=== PATIENT | male | born 1970 | race Caucasian/White ===

== ENCOUNTER 2017-05-11 11:24 | Emergency (ER) | payer OTHER ==
[2017-05-11] MEDS ORDERED: DEXAMETHASONE SOD PHOSPHATE 10 MG/ML 1 ML VIAL IV STA (12:08)
[2017-05-11] MEDS ORDERED: HYDROmorphone 1 MG/ML 1 ML SYRINGE IVP STA (12:08)
[2017-05-11] MEDS ORDERED: SODIUM CHLORIDE 0.9% 1,000 ML IV SCH (12:15)
--- NOTE | 2017-05-11 12:31 | ED ---
General Adult HPI - General Chief complaint: Extremity Problem,Nontraumatic Stated complaint: leg pain Time Seen by Provider: 05/11/17 11:44 Source: patient, family, RN notes reviewed Mode of arrival: wheelchair Limitations: no limitations - History of Present Illness Initial comments: Chief complaint and history of present illness is a 46-year-old male here with his sister. The patient has severe pain starting in the lateral left thigh area radiating down to the lateral aspect of the leg to the foot. Burning searing pain. Recently the patient was reviewed his hospital because of possible kidney stones since then the pains become progressively worse. He did have some blood in the urine and was told the CAT scan showed evidence of stones in the kidney and he may have possibly passed one but none was noted in the ureter. Patient does have a history of kidney stones 2 previous times. Denies any history of sciatic type problems. He's been on steroids and pain medication for several days and is not covering the discomfort. Patient says he can't stand long enough to brush his teeth because of the pain. He has a positive leg lift test which causes increased pain to the left sciatic nerve distribution. Patient denies any injuries. 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 - Related Data Home Medications Medication Instructions Recorded Confirmed Acetaminophen/Diphenhydramine 2 tab PO HS PRN 05/11/17 05/11/17 [Tylenol PM 500-25mg] Ciprofloxacin HCl [Cipro] 500 mg PO Q12HR 05/11/17 05/11/17 HYDROcodone/APAP 5-325MG [[place] 1 tab PO Q4HR PRN 05/11/17 05/11/17 5-325] Methocarbamol [Robaxin] 1,000 mg PO TID 05/11/17 05/11/17 Ondansetron [Zofran ODT] 4 mg PO Q8HR 05/11/17 05/11/17 Tamsulosin [Flomax] 0.4 mg PO DAILY 05/11/17 05/11/17 predniSONE See Taper PO DAILY 05/11/17 05/11/17 Allergies Allergy/AdvReac Type Severity Reaction Status Date / Time No Known Allergies Allergy Verified 05/11/17 11:41 Review of Systems ROS Statement: Those systems with pertinent positive or pertinent negative responses have been documented in the HPI. Review of systems no headache or visual acuity changes no chest pain or shortness of breath no nausea no vomiting. He has from L2 to L5 distribution pain any to the lateral aspect of the right leg starting at the hip area to the lateral aspect of the left leg. He has different sensation compared to the left leg in those areas normal sensations medially and at the feet. All systems are reviewed. Past medical problems kidney stones. Surgeries tonsils and left knee meniscus surgery. Family history mother had lung cancer. Patient denies ALLERGIES he does chew tobacco strongly encouraged to stop drinks alcohol socially. ROS Other: All systems not noted in ROS Statement are negative. Past Medical History Past Medical History: No Reported History History of Any Multi-Drug Resistant Organisms: None Reported Past Surgical History: Tonsillectomy Past Psychological History: No Psychological Hx Reported Smoking Status: Never smoker Past Alcohol Use History: Occasional Past Drug Use History: None Reported General Exam - General Exam Comments Initial Comments: General: The patient is awake and alert, in [id number] distress because of pain radiating down the lateral aspect of his right leg. Vital signs temperature 97.5 pulse 85 respiratory rate 20 pulse ox 99% room air blood pressure 174/99. He does not normally have high blood pressure. Eye: Pupils are equal, round and reactive to light, extra-ocular movements are intact ; there is normal conjunctiva bilaterally. No signs of icterus. Ears, nose, mouth and throat: There are moist mucous membranes and no oral lesions. Neck: The neck is supple, there is no tenderness . Cardiovascular: There is a regular rate and rhythm. No murmur, rub or gallop is appreciated. Respiratory: Lungs are clear to auscultation, respirations are non-labored, breath sounds are equal. No wheezes, stridor, rales, or rhonchi. Gastrointestinal: Soft, non-distended, non-tender abdomen without masses or organomegaly noted. There is no rebound or guarding present. No CVA tenderness. Bowel sounds are unremarkable. Back: The pain starts in the low right buttock radiates mainly to the lateral aspect of the right thigh and right lower leg. Positive leg lift test Musculoskeletal: Normal ROM, no tenderness, There is no pedal edema. There is no calf tenderness or swelling. Sensation intact. Pulses equal bilaterally 2+. Neurological: CN II-XII intact, There are no obvious motor or sensory deficits. Coordination appears grossly intact. Speech is normal. Right sciatica distribution pain Skin: Skin is warm and dry and no rashes or lesions are noted. Limitations: no limitations Course Vital Signs 05/11/17 05/11/17 05/11/17 11:27 13:40 14:49 Temperature 97.5 F L 97.9 F 98.0 F Pulse Rate 85 81 Respiratory 20 17 Rate Blood Pressure 174/99 139/93 O2 Sat by Pulse 99 95 Oximetry Medical Decision Making - Medical Decision Making At this time the patient will have medications provided including Dilaudid and Decadron. The patient will have an MRI approximately 2:30 today. I discussed the case with radiologist Dr. Eli. At this time he recommends MRI of the lumbosacral spine without contrast. MRI was done and reviewed by radiologist's his final impression is #1 broad- based and circumferential disc bulging L4-L5 with mild effacement of the thecal sac but no canal stenosis. Bulging greater for laterally the right with bilateral mild to moderate foraminal encroachment greater on the right. Far right lateral disc protrusion suggested. Correlate for radiculopathy at this level. #2 annular tear at L5-S1 no disc herniation, Canal Stenosis, or Foraminal Encroachment. And #3 Multilevel Facet Arthropathy As Read by Dr. Delgado. The Patient Is More Comfortable at This Time to Be Discharged Home on Steroids Anti-Inflammatories and Pain Medication Be Referred onto His [facility] On-Call Back Surgeon Dr. Eaton at [facility]. As Disposition Clinical Impression: Lumbar radiculopathy, acute Disposition: HOME SELF-CARE Condition: Fair Instructions: Lumbar Radiculopathy (ED) Additional Instructions: Take medications as directed. Referrals: None,Stated [Primary Care Provider] - 1-2 days Patricia Eaton DO [Doctor of Osteopathic Medicine] - 1-2 days Santiago Cortés MD [STAFF PHYSICIAN] - 1-2 days Time of Disposition: 15:18
--- NOTE | 2017-05-11 14:48 | MR ---
EXAMINATION TYPE: MR lumbar spine wo con DATE OF EXAM: 05/11/2017 COMPARISON: NONE HISTORY: Severe pain lateral aspect of rt leg to foot TECHNIQUE: T1 and T2 axial and sagittal images of the lumbar spine are submitted. FINDINGS: There is no abnormal signal seen within the visualized spinal cord or paraspinal soft tissu es. Incidental note made of a retroaortic left renal vein. At L1-2 there is no disc herniation, degenerative disc disease, canal stenosis, or foraminal encroach ment. Mild hypertrophic change of the facets. At L2-3 there is no disc herniation, degenerative disc disease, canal stenosis, or foraminal encroach ment. Mild hypertrophic change of the facets At L3-4 there is mild disc desiccation with no disc herniation or canal stenosis. No foraminal encroa chment. Mild facet arthropathy. At L4-5 there is broad-based and circumferential disc bulging with very mild anterior effacement of t hecal sac. There is mild to moderate bilateral foraminal encroachment greater on the right. Suspected far right lateral disc protrusion or herniation. Recommend follow-up postcontrast imaging. At L5-S1 there is annular tear with facet arthropathy. No focal herniation, canal stenosis or neural foraminal encroachment. IMPRESSION: 1. Broad-based and circumferential disc bulging L4-L5 with mild effacement of thecal sac but no canal stenosis. Bulging greater far laterally the right with bilateral mild to moderate foraminal encroach ment greater on the right. Far right lateral disc protrusion suggested. Correlate for radiculopathy a t this level. 2. Annular tear L5-S1 with no disc herniation, canal stenosis, or foraminal encroachment. 3. Multilevel facet arthropathy.
[2017-05-11 14:50] VITALS: BP 139/93; PULSE 81; RESP 17; TEMP 98
== END 2017-05-11 15:35 | disposition home or self-care (01) ==
LOC: EC 11:24
DX: M51.17 Intervertebral disc disorders with radiculopathy, lumbosacral region (principal); M46.96 Unspecified inflammatory spondylopathy, lumbar region; Z79.52 Long term (current) use of systemic steroids; Z79.899 Other long term (current) drug therapy
CPT/HCPCS: 72148; 99283; 96374; 96375; 96361 ×3; J1100; J1170

== ENCOUNTER 2018-12-31 05:55 | Observation (INO) | payer OTHER ==
[2018-12-31] MEDS ORDERED: ASPIRIN 81 MG PO STA (06:24)
[2018-12-31] MEDS ORDERED: hydrALAZINE HCL 20 MG/ML 1 ML VIAL IVP STA (06:25)
--- NOTE | 2018-12-31 06:29 | ED ---
Chest Pain HPI - General Chief Complaint: Chest Pain Stated Complaint: chest pain Time Seen by Provider: 12/31/18 06:18 Source: patient Mode of arrival: ambulatory Limitations: no limitations - History of Present Illness Initial Comments: This patient is a 48-year-old man presenting with approximately a one-month history of intermittent chest pains. He describes it as being a tightness across his chest. Patient states that they come and go. He has not noted any factors that make the pain better or worse. He states that it is not exertional. Patient states that the symptoms have been getting worse for the past approximately 2-3 days. In addition, patient has been checking his blood pressure intermittently over the past few weeks and it has been elevated. He does not have primary physician. He denies anginal symptoms. MD Complaint: chest pain -: hour(s) Onset: during rest Pain Location: substernal Pain Radiation: none Severity: moderate Quality: tightness Consistency: constant Improves With: nothing Worsens With: nothing Treatments Prior to Arrival: none - Related Data Home Medications Medication Instructions Recorded Confirmed Favio Pm (Otc Sleep Aid) 2 tab PO HS PRN 12/31/18 12/31/18 Allergies Allergy/AdvReac Type Severity Reaction Status Date / Time No Known Allergies Allergy Verified 12/31/18 06:57 Review of Systems ROS Statement: Those systems with pertinent positive or pertinent negative responses have been documented in the HPI. ROS Other: All systems not noted in ROS Statement are negative. Constitutional: Denies: fever Respiratory: Denies: cough, dyspnea, wheezes Cardiovascular: Reports: as per HPI, chest pain. Denies: palpitations, edema, syncope Gastrointestinal: Denies: abdominal pain, nausea, vomiting Genitourinary: Denies: dysuria Musculoskeletal: Denies: back pain Skin: Denies: rash Neurological: Denies: headache, weakness, numbness EKG Findings - EKG Results: EKG: interpreted by ERMD, sinus rhythm, normal axis, normal QRS, normal ST/T, no acute changes EKG shows: tachycardia (Rate approximately 108 bpm) Past Medical History Past Medical History: Hypertension Additional Past Medical History / Comment(s): kidney stone History of Any Multi-Drug Resistant Organisms: None Reported Past Surgical History: Orthopedic Surgery, Tonsillectomy Past Psychological History: No Psychological Hx Reported Smoking Status: Never smoker Past Alcohol Use History: Occasional Past Drug Use History: None Reported General Exam Limitations: no limitations General appearance: alert, in no apparent distress, anxious Head exam: Present: atraumatic, normocephalic Eye exam: Present: normal appearance. Absent: scleral icterus, conjunctival injection ENT exam: Present: normal oropharynx Respiratory exam: Present: normal lung sounds bilaterally. Absent: respiratory distress, wheezes, rales, rhonchi, stridor Cardiovascular Exam: Present: normal rhythm, tachycardia, normal heart sounds. Absent: systolic murmur, diastolic murmur, rubs, gallop GI/Abdominal exam: Present: soft. Absent: distended, tenderness, guarding, rebound, rigid, mass Extremities exam: Present: normal inspection, normal capillary refill. Absent: pedal edema, calf tenderness Back exam: Present: normal inspection. Absent: CVA tenderness (R), CVA tenderness (L) Neurological exam: Present: alert Skin exam: Present: warm, dry, intact, normal color. Absent: rash Course Vital Signs 12/31/18 05:57 Temperature 99.0 F Pulse Rate 112 H Respiratory 20 Rate Blood Pressure 184/126 O2 Sat by Pulse 99 Oximetry Disposition Clinical Impression: Chest pain, Hypertension Disposition: ADMITTED IP TO THIS HOSP Condition: Fair Is patient prescribed a controlled substance at d/c from ED?: No Referrals: None,Stated [Primary Care Provider] - 1-2 days
--- NOTE | 2018-12-31 06:58 | XR ---
EXAM: XR Chest, 2 Views CLINICAL HISTORY: Chest pain. TECHNIQUE: Frontal and lateral views of the chest. COMPARISON: No relevant prior studies available. FINDINGS: Lungs: No focal consolidation. No evidence of pulmonary edema. Pleural space: No significant pleural effusion. No pneumothorax. Heart: Unremarkable. No cardiomegaly. Mediastinum: Unremarkable. Bones/joints: Unremarkable. IMPRESSION: No radiographic evidence of acute cardiopulmonary process.
[2018-12-31 06:59] LABS: Basophils % (A) 1 %; Eosinophils # (A) 0.1 k/uL (0-0.7); Eosinophils % (A) 2 %; HCT 44.6 % (39.0-53.0); HGB 15.3 gm/dL (13.0-17.5); Lymphocytes # (A) 2.1 k/uL (1.0-4.8); Lymphocytes % (A) 29 %; MCH 31.9 pg (25.0-35.0); MCHC 34.4 g/dL (31.0-37.0); MCV 92.9 fL (80.0-100.0); Mean Platelet Volume 7.2; Monocytes # (A) 0.4 k/uL (0-1.0); Monocytes % (A) 5 %; Neutrophils # (A) 4.7 k/uL (1.3-7.7); Neutrophils % (A) 63 %; Platelet Count 264 k/uL (150-450); RDW 13.4 % (11.5-15.5); WBC 7.4 k/uL (3.8-10.6)
[2018-12-31 07:06] LABS: Partial Thromboplastin Time 26.4 sec (22.0-30.0); Prothrombin Time 10.6 sec (9.0-12.0)
[2018-12-31 07:12] LABS: ALT 40 U/L (21-72); AST 35 U/L (17-59); Albumin 4.4 g/dL (3.5-5.0); Alkaline Phosphatase 65 U/L (38-126); Amylase 46 U/L (30-110); Anion Gap 10 mmol/L; Blood Urea Nitrogen 18 mg/dL (9-20); Calcium 10.3 mg/dL (8.4-10.2); Carbon Dioxide 25 mmol/L (22-30); Chloride 105 mmol/L (98-107); Glucose 127 mg/dL (74-99); Lipase 61 U/L (23-300); Magnesium 1.7 mg/dL (1.6-2.3); Potassium 3.7 mmol/L (3.5-5.1); Sodium 140 mmol/L (137-145); Total Bilirubin 0.8 mg/dL (0.2-1.3); Total Protein 7.2 g/dL (6.3-8.2)
[2018-12-31] MEDS ORDERED: NITROGLYCERIN SL TABS 0.4 MG TAB SUBLINGUAL PRN (07:22)
[2018-12-31] MEDS ORDERED: ACETAMINOPHEN TAB 325 MG TAB PO PRN (07:22)
[2018-12-31 07:29] LABS: Creatine Kinase 60 U/L (55-170)
[2018-12-31 07:42] LABS: Creatine Kinase MB 0.5 ng/mL (0.0-2.4); Troponin I <0.012 ng/mL (0.000-0.034)
[2018-12-31] MEDS: SODIUM CHLORIDE 0.9% 1,000 ML IV SCH (07:57)
[2018-12-31] MEDS ORDERED: METOPROLOL TARTRATE 25 MG TAB PO SCH (09:00)
[2018-12-31] MEDS: LOSARTAN 25 MG TAB PO SCH (10:32)
[2018-12-31] MEDS: NITROGLYCERIN OINT 1 INCH/GM PACKET TOPICAL SCH ×3 (10:35→17:47)
--- NOTE | 2018-12-31 13:00 | P.CRDCN ---
History of Present Illness History of present illness: This is a pleasant 48-year-old male past medical history significant for hypertension in the past however has never been treated or sought medical attention due to lack of insurance. He also has a history of kidney stones. He denies history of coronary artery disease, dyslipidemia or diabetes mellitus. We have been asked to see him in consultation for chest pain. He states he has been having chest pain intermittently for the last few weeks. The pain is in the mid-sternal region and described as pressure tight sensation. The discomfort comes at all times of the day and night with no specific aggravating or alleviating factors. He denies associated shortness of breath, dizziness, nausea, vomiting or diaphoresis. The pain typically does not radiate anywhere and goes away on its own. However, last night the pain was much more intense in nature and radiated to his left shoulder and upper arm. This alarmed him since this was a new symptom. He continues to have pain in his chest that has improved since admission after getting SL nitro. Blood pressure on arrival 184/ 106 and 170/105. He states approximately one year ago while at a dental visit for tooth extraction his blood pressure was extremely high and he was told to seek medical attention. However he had no medical insurance and never followed up. He states he will check his blood pressure intermittently while he was at the pharmacy or at home and his blood pressures consistently have been elevated over the previous year 160-180 systolic. He was given one dose of IV hydralazine in the emergency department early this morning at 0645. Current blood pressure is 147/100 and 151/88. At the time of my exam: CONSTITUTIONAL: Denies fever. Denies chills. EYES: Denies blurred vision. Denies vision changes. Denies eye pain. EARS, NOSE, MOUTH & THROAT: Denies headache. Denies sore throat. Denies ear pain. CARDIOVASCULAR: Denies chest pain. Denies shortness of breath. Denies orthopnea. Denies PND. Denies palpitations. RESPIRATORY: Denies cough. GASTROINTESTINAL: Denies abdominal pain. Denies diarrhea. Denies constipation. Denies nausea. Denies vomiting. MUSCULOSKELETAL: Denies myalgias. INTEGUMENTARY: Denies pruitis. Denies rash. NEUROLOGIC: Denies numbness. Denies tingling. Denies weakness. PSYCHIATRIC: Denies anxiety. Denies depression. ENDOCRINE: Denies fatigue. Denies weight change. Denies polydipsia. Denies polyurina. GENITOURINARY: Denies burning, hematuria or urgency with micturation. HEMATOLOGIC: Denies history of anemia. Denies bleeding. Blood pressure 151/88 heart rate 98 afebrile resting oxygen saturation on room air GENERAL: This is a 48-year-old male in no apparent distress at the time of my examination. Obese. HEENT: Head is atraumatic, normocephalic. Pupils are equal, round. Sclerae anicteric. Conjunctivae are clear. Mucous membranes of the mouth are moist. Neck is supple. There is no jugular venous distention. No carotid bruit is heard. LUNGS: Clear to auscultation no wheezes, rales or rhonchi. No chest wall tenderness is noted on palpation or with deep breathing. HEART: Regular rate and rhythm without murmurs, rubs or gallops. S1 and S2 heard. ABDOMEN: Soft, nontender. Bowel sounds are heard. No organomegaly noted. EXTREMITIES: No evidence of peripheral edema and no calf tenderness noted. VASCULAR: Radial and dorsalis pedis pulses palpated, no evidence of clubbing. NEUROLOGIC: Patient is awake, alert and oriented x3. ASSESSMENT Chest pain, atypical. Hypertensive emergency PLAN Continue to obtain serial cardiac enzymes to rule out an acute coronary event. Initiate on losartan 25 mg daily. Apply nitropaste for ongoing symptoms of chest discomfort. Continue to monitor blood pressure closely. NPO after midnight tonight for stress test in the morning if cardiac enzymes are normal and blood pressure is controlled. Further recommendations to follow. Thank you kindly for this consultation. Nurse Practitioner note has been reviewed, I agree with a documented findings and plan of care. Patient was seen and examined. Past Medical History Past Medical History: Hypertension Additional Past Medical History / Comment(s): Kidney stones x2 pt passed on his own, HTN for 1 year-pt did not pursue tx d/t no insurance coverage. History of Any Multi-Drug Resistant Organisms: None Reported Past Surgical History: Orthopedic Surgery, Tonsillectomy Additional Past Surgical History / Comment(s): R knee arthroscopic surgery. Past Anesthesia/Blood Transfusion Reactions: No Reported Reaction Past Psychological History: No Psychological Hx Reported Additional Psychological History / Comment(s): Pt resides with his brother in law. He is independent. Smoking Status: Never smoker Past Alcohol Use History: Occasional Past Drug Use History: None Reported - Past Family History Mother Family Medical History: Cancer Additional Family Medical History / Comment(s): Mother of lung cancer at the age of 68yrs. She was a smoker. Father History Unknown: Yes Additional Family Medical History / Comment(s): Father left when pt was 4 yrs old. Medications and Allergies Home Medications Medication Instructions Recorded Confirmed Type [employer] Pm (Otc Sleep Aid) 2 tab PO HS PRN 12/31/18 12/31/18 History Allergies Allergy/AdvReac Type Severity Reaction Status Date / Time No Known Allergies Allergy Verified 12/31/18 06:57 Physical Exam Vitals: Vital Signs Temp Pulse Pulse Resp BP BP Pulse Ox 12/31/18 11:50 98.6 F 90 18 151/88 96 12/31/18 09:30 147/100 12/31/18 08:55 98 F 86 18 169/111 97 12/31/18 08:43 92 18 12/31/18 08:11 131 H 18 141/93 96 12/31/18 08:06 128 H 18 146/105 95 12/31/18 07:58 110 H 18 164/119 97 12/31/18 07:20 112 H 18 168/107 94 L 12/31/18 07:10 105 H 16 168/107 95 12/31/18 07:00 104 H 18 152/113 96 12/31/18 06:50 105 H 17 152/113 97 12/31/18 06:40 100 19 170/105 93 L 12/31/18 06:30 105 H 17 96 12/31/18 06:20 103 H 15 98 12/31/18 06:10 99 12/31/18 05:57 99.0 F 112 H 20 184/126 99 Intake and Output 12/30/18 12/31/18 12/31/18 22:59 06:59 14:59 Other: Weight 95.254 kg Results 12/31/18 06:30 12/31/18 06:30 Cardiac Enzymes 12/31/18 12/31/18 Range/Units 06:30 06:30 AST 35 (17-59) U/L CK-MB (CK-2) 0.5 (0.0-2.4) ng/mL Troponin I <0.012 (0.000-0.034) ng/mL Coagulation 12/31/18 Range/Units 06:30 PT 10.6 (9.0-12.0) sec APTT 26.4 (22.0-30.0) sec CBC 12/31/18 Range/Units 06:30 WBC 7.4 (3.8-10.6) k/uL RBC 4.80 (4.30-5.90) m/uL Hgb 15.3 (13.0-17.5) gm/dL Hct 44.6 (39.0-53.0) % Plt Count 264 (150-450) k/uL Comprehensive Metabolic Panel 12/31/18 Range/Units 06:30 Sodium 140 (137-145) mmol/L Potassium 3.7 (3.5-5.1) mmol/L Chloride 105 (98-107) mmol/L Carbon Dioxide 25 (22-30) mmol/L BUN 18 (9-20) mg/dL Creatinine 0.98 (0.66-1.25) mg/dL Glucose 127 H (74-99) mg/dL Calcium 10.3 H (8.4-10.2) mg/dL AST 35 (17-59) U/L ALT 40 (21-72) U/L Alkaline Phosphatase 65 (38-126) U/L Total Protein 7.2 (6.3-8.2) g/dL Albumin 4.4 (3.5-5.0) g/dL Current Medications Generic Name Dose Route Start Last Admin Trade Name Freq PRN Reason Stop Dose Admin Acetaminophen 650 mg 12/31/18 07:22 Tylenol Tab PO Q4HR PRN Pain Aspirin 325 mg 01/01/19 09:00 Aspirin PO DAILY JESSICA Sodium Chloride 1,000 mls @ 20 mls/hr 12/31/18 07:30 12/31/18 07:57 Saline 0.9% IV Not Given .Q24H JESSICA Losartan Potassium 25 mg 12/31/18 09:45 12/31/18 10:32 Cozaar PO 25 mg DAILY JESSICA Administration Metoprolol Tartrate 25 mg 12/31/18 09:00 12/31/18 07:59 Lopressor PO 25 mg Q12H JESSICA Administration Nitroglycerin 0.4 mg 12/31/18 07:22 12/31/18 07:58 Nitrostat SUBLINGUAL 0.4 mg Q5M PRN Administration Chest Pain Nitroglycerin 1 inch 12/31/18 12:00 12/31/18 10:35 Nitro-Bid Oint TOPICAL 1 inch Q6HR JESSICA Administration Intake and Output 12/30/18 12/31/18 12/31/18 22:59 06:59 14:59 Other: Weight 95.254 kg 12/31/18 06:30 12/31/18 06:30
[2018-12-31 13:50] LABS: Creatine Kinase 57 U/L (55-170)
--- NOTE | 2018-12-31 14:03 | P.HPIM ---
History of Present Illness 48-year-old pleasant gentleman came in with compensative chest pressure like sensation nonexertional with some pleuritic competent because of the breathing patient has ER like symptoms for about a week or so. Patient chest pain does increase with some deep breathing in the retrosternal area patient has a constant pressure with the out any radiation pain which is very minimal severity with on and off severe 8/10 sharp pain in the retrosternal area patient does have reproducibility around the epigastric area. Patient believes his probably hypertensive never seeks medical attention for that his blood pressure is definitely elevated here with tachycardia. Patient was complaining of some lightheadedness denied any diaphoresis denied nausea vomiting. Patient denied any cough is not a smoker. Review of Systems REVIEW OF SYSTEMS: CONSTITUTIONAL: No fever, no malaise, no fatigue. HEENT: No recent visual problems or hearing problems. Denied any sore throat. CARDIOVASCULAR: No orthopnea, PND, no palpitations, no syncope. PULMONARY: No shortness of breath, no cough, no hemoptysis. GASTROINTESTINAL: No diarrhea, no nausea, no vomiting, no abdominal pain. NEUROLOGICAL: No headaches, no weakness, no numbness. HEMATOLOGICAL: Denies any bleeding or petechiae. GENITOURINARY: Denies any burning micturition, frequency, or urgency. MUSCULOSKELETAL/RHEUMATOLOGICAL: Denies any joint pain, swelling, or any muscle pain. ENDOCRINE: Denies any polyuria or polydipsia. The rest of the 14-point review of systems is negative. Past Medical History Past Medical History: Hypertension Additional Past Medical History / Comment(s): Kidney stones x2 pt passed on his own, HTN for 1 year-pt did not pursue tx d/t no insurance coverage. History of Any Multi-Drug Resistant Organisms: None Reported Past Surgical History: Orthopedic Surgery, Tonsillectomy Additional Past Surgical History / Comment(s): R knee arthroscopic surgery. Past Anesthesia/Blood Transfusion Reactions: No Reported Reaction Past Psychological History: No Psychological Hx Reported Additional Psychological History / Comment(s): Pt resides with his brother in law. He is independent. Smoking Status: Never smoker Past Alcohol Use History: Occasional Past Drug Use History: None Reported - Past Family History Mother Family Medical History: Cancer Additional Family Medical History / Comment(s): Mother of lung cancer at the age of 68yrs. She was a smoker. Father History Unknown: Yes Additional Family Medical History / Comment(s): Father left when pt was 4 yrs old. Medications and Allergies Home Medications Medication Instructions Recorded Confirmed Type [facility] Pm (Otc Sleep Aid) 2 tab PO HS PRN 12/31/18 12/31/18 History Allergies Allergy/AdvReac Type Severity Reaction Status Date / Time No Known Allergies Allergy Verified 12/31/18 06:57 Physical Exam Vitals: Vital Signs Temp Pulse Pulse Resp BP BP Pulse Ox 12/31/18 11:50 98.6 F 90 18 151/88 96 12/31/18 09:30 147/100 12/31/18 08:55 98 F 86 18 169/111 97 12/31/18 08:43 92 18 12/31/18 08:11 131 H 18 141/93 96 12/31/18 08:06 128 H 18 146/105 95 12/31/18 07:58 110 H 18 164/119 97 12/31/18 07:20 112 H 18 168/107 94 L 12/31/18 07:10 105 H 16 168/107 95 12/31/18 07:00 104 H 18 152/113 96 12/31/18 06:50 105 H 17 152/113 97 12/31/18 06:40 100 19 170/105 93 L 12/31/18 06:30 105 H 17 96 12/31/18 06:20 103 H 15 98 12/31/18 06:10 99 12/31/18 05:57 99.0 F 112 H 20 184/126 99 Intake and Output 12/30/18 12/31/18 12/31/18 22:59 06:59 14:59 Other: Weight 95.254 kg PHYSICAL EXAMINATION: GENERAL: The patient is alert and oriented x3, not in any acute distress. Obese HEENT: Pupils are round and equally reacting to light. EOMI. No scleral icterus. No conjunctival pallor. Normocephalic, atraumatic. No pharyngeal erythema. No thyromegaly. CARDIOVASCULAR: S1 and S2 present. No murmurs, rubs, or gallops. PULMONARY: Chest is clear to auscultation, no wheezing or crackles. ABDOMEN: Soft, nontender, nondistended, normoactive bowel sounds. No palpable organomegaly. MUSCULOSKELETAL: No joint swelling or deformity. EXTREMITIES: No cyanosis, clubbing, or pedal edema. NEUROLOGICAL: Gross neurological examination did not reveal any focal deficits. SKIN: No rashes. Results CBC & Chem 7: 12/31/18 06:30 12/31/18 06:30 Labs: Abnormal Lab Results - Last 24 Hours (Table) 12/31/18 Range/Units 06:30 Glucose 127 H (74-99) mg/dL Calcium 10.3 H (8.4-10.2) mg/dL Thrombosis Risk Factor Assmnt - Choose All That Apply Any of the Below Risk Factors Present?: Yes Each Factor Represents 1 point: Age 41-60 years, Obesity (BMI >25) Other Risk Factors: No Other congenital or acquired thrombophilia - If yes, enter type in comment: No Thrombosis Risk Factor Assessment Total Risk Factor Score: 2 Thrombosis Risk Factor Assessment Level: Low Risk Assessment and Plan Plan: -Chest pain with some pruritic, and because of which are pending a d-dimer which is negative. Patient is admitted to rule out a concurrent syndromes uncertain of troponin is -2 seconds at is still pending. Patient does have yearly symptoms it can be pleuropericarditis of muscular skeletal chest pain. Patient may undergo stress test tomorrow if that is negative patient was discharged on some nonsteroidal anti-inflammatory medications -Hypertension patient the was started on lisinopril and metoprolol because of elevated heart rate tended d-dimer to rule out pulmonary embolism because of the tachycardia and chest pain d-dimer is negative. Awaiting T he TSH patient probably has baseline sinus tachycardia because of his obesity counseling regarding lifestyle modifications -Obesity
[2018-12-31 14:04] LABS: Creatine Kinase MB 0.3 ng/mL (0.0-2.4); Troponin I <0.012 ng/mL (0.000-0.034)
[2018-12-31 19:34] LABS: Creatine Kinase 60 U/L (55-170)
[2018-12-31 19:46] LABS: Creatine Kinase MB 0.4 ng/mL (0.0-2.4); Troponin I <0.012 ng/mL (0.000-0.034)
[2019-01-01] MEDS: NITROGLYCERIN OINT 1 INCH/GM PACKET TOPICAL SCH ×3 (00:54→11:47)
[2019-01-01 03:54] VITALS: RESP 18
[2019-01-01 05:48] LABS: Cholesterol 260 mg/dL (<200); HDL Cholesterol 74 mg/dL (40-60); Triglycerides 455 mg/dL (<150)
[2019-01-01] MEDS ORDERED: ASPIRIN 325 MG TAB PO SCH (09:00)
[2019-01-01] MEDS: SODIUM CHLORIDE 0.9% 1,000 ML IV SCH (10:09)
--- NOTE | 2019-01-01 10:45 | ECHOF ---
Referral Reason:cp MEASUREMENTS -------- HEIGHT: 175.3 cm WEIGHT: 95.3 kg BP: 151/88 RVIDd: 2.9 cm (< 3.3) IVSd: 1.4 cm (0.6 - 1.1) LVIDd: 4.5 cm (3.9 - 5.3) LVPWd: 1.2 cm (0.6 - 1.1) IVSs: 1.6 cm LVIDs: 3.6 cm LVPWs: 1.7 cm LA Diam: 3.6 cm (2.7 - 3.8) LAESV Index (A-L): 18.43 ml/m Ao Diam: 3.3 cm (2.0 - 3.7) AV Cusp: 2.0 cm (1.5 - 2.6) LA Diam: 3.4 cm (2.7 - 3.8) MV EXCURSION: 19.783 mm (> 18.000) MV EF SLOPE: 76 mm/s (70 - 150) EPSS: 0.5 cm MV E Herminio: 0.51 m/s MV DecT: 286 ms MV A Herminio: 0.88 m/s MV E/A Ratio: 0.58 RAP: 5.00 mmHg RVSP: 29.40 mmHg FINDINGS -------- Sinus rhythm. This was a technically adequate study. The left ventricular size is normal. There is moderate concentric left ventricular hypertrophy. O verall left ventricular systolic function is normal with, an EF between 55 - 60 %. The right ventricle is normal in size. The left atrial size is normal. The right atrial size is normal. The aortic valve is trileaflet, and appears structurally normal. No aortic stenosis or regurgitation. Mild mitral regurgitation is present. Mild tricuspid regurgitation present. There is no evidence of pulmonary hypertension. The right v entricular systolic pressure, as measured by Doppler, is 29.40mmHg. There is no pulmonic regurgitation present. The aortic root size is normal. There is no pericardial effusion. CONCLUSIONS -------- 1. The left ventricular size is normal. 2. There is moderate concentric left ventricular hypertrophy. 3. Overall left ventricular systolic function is normal with, an EF between 55 - 60 %. 4. The right ventricle is normal in size. 5. The left atrial size is normal. 6. The right atrial size is normal. 7. The aortic valve is trileaflet, and appears structurally normal. No aortic stenosis or regurgitati on. 8. Mild mitral regurgitation is present. 9. Mild tricuspid regurgitation present. 10. There is no evidence of pulmonary hypertension. 11. The right ventricular systolic pressure, as measured by Doppler, is 29.40mmHg. 12. There is no pulmonic regurgitation present. 13. The aortic root size is normal. 14. There is no pericardial effusion. [employer] ATTENDANT: Christie Batres RDCS
[2019-01-01] MEDS: LOSARTAN 25 MG TAB PO SCH (11:46)
[2019-01-01 11:49] VITALS: BP 130/84; PULSE 98; TEMP 97.8
--- NOTE | 2019-01-01 12:27 | ECHOS ---
STRESS ECHOCARDIOGRAM DATE OF SERVICE: 01/01/2019 INDICATIONS: Chest pain. MEDICATIONS: BASELINE HEART RATE: 69 BASELINE BLOOD PRESSURE: 142/99 MAXIMUM HEART RATE: 171 MAXIMUM BLOOD PRESSURE: 218/70 85% MPHR: 148 100% MPHR: 174 METS: 10 MAXIMUM STAGE REACHED: II TOTAL EXERCISE TIME: 8-1/2 minutes CLINICAL INFORMATION: Baseline EKG shows sinus rhythm, normal axis, normal intervals. Patient exercised on Chinedu protocol for a total of 8-1//2 minutes achieving 10 METS 98% of predicted maximal heart rate without chest pain or diagnostic ST-segment depression. Baseline echo shows normal left ventricular size, wall motion and systolic function. Postexercise, there is normal hyperdynamic response of all segments of myocardium noted. CONCLUSIONS: 1. Good exercise tolerance. 2. Negative stress test by EKG criteria. 3. Negative stress echo. FARHAN / THALIAN: [id number] /
--- NOTE | 2019-01-01 13:21 | P.PN ---
Subjective This is a pleasant 48-year-old male past medical history significant for hypertension in the past however has never been treated or sought medical attention due to lack of insurance. He also has a history of kidney stones. He denies history of coronary artery disease, dyslipidemia or diabetes mellitus. We have been asked to see him in consultation for chest pain. He was started on losartan yesterday and his blood pressure is much better controlled today, 130/ 84 heart rate 98. He states last night after eating dinner he again felt a pain in the chest in the mid-sternal region. Described as a tight burning sensation. He declined nitroglycerin or antacids at the time. Echocardiogram obtained reveals preserved left ventricular systolic function with ejection fraction 55- 60%. GENERAL: This is a 48-year-old male in no apparent distress at the time of my examination. Obese. HEENT: Head is atraumatic, normocephalic. Pupils are equal, round. Sclerae anicteric. Conjunctivae are clear. Mucous membranes of the mouth are moist. Neck is supple. There is no jugular venous distention. No carotid bruit is heard. LUNGS: Clear to auscultation no wheezes, rales or rhonchi. No chest wall tenderness is noted on palpation or with deep breathing. HEART: Regular rate and rhythm without murmurs, rubs or gallops. S1 and S2 heard. EXTREMITIES: No evidence of peripheral edema and no calf tenderness noted. ASSESSMENT Chest pain, atypical. Hypertensive emergency. Resolved. Hypertriglyceridemia PLAN Stress test performed was negative for stress induced ischemia. Lifestyle modifications discussed for lowering of cholesterol with diet and exercise. Will reassess in 3 months. Dietary consultation requested by the patient for education. Chest pain etiology may be related to GI or esophageal spasm, further work-up per primary care team. Stable from a cardiac perspective, follow up with Dr. Alexander in 2 weeks. Nurse Practitioner note has been reviewed, I agree with a documented findings and plan of care. Patient was seen and examined. Objective - Vital Signs Vital signs: Vital Signs Temp 97.8 F 01/01/19 11:48 Pulse 98 01/01/19 11:48 Resp 18 01/01/19 11:48 BP 130/84 01/01/19 11:48 Pulse Ox 96 01/01/19 11:48 Intake & Output 12/31/18 01/01/19 01/01/19 18:59 06:59 18:59 Intake Total 800 400 Balance 800 400 Intake: Oral 800 400 Other: Voiding Method Toilet Toilet - Labs CBC & Chem 7: 12/31/18 06:30 12/31/18 06:30 Labs: Abnormal Lab Results - Last 24 Hours (Table) 12/31/18 Range/Units 06:30 Triglycerides 455 H (<150) mg/dL Cholesterol 260 H (<200) mg/dL HDL Cholesterol 74 H (40-60) mg/dL
--- NOTE | 2019-01-01 16:37 | P.DS ---
Providers Date of admission: 12/31/18 07:25 Attending physician: Krystian Richey Consults: 12/31/18 07:22 Consult Physician Routine Consulting Provider: Dinh Bruce Consult Reason/Comments: chest pain Do you want consulting provider notified?: Yes Primary care physician: Stated None Hospital Course: Patient admitted for gram chest pain appears to be epigastric and related to gastritis or gastric reflux disease patient will be discharged on Prilosec patient underwent stress test which is negative patient had mildly elevated blood pressure and does have hyperlipidemia, lifestyle modifications were advised to the patient and patient is being discharged and patient will follow up as an outpatient with cardiology and PCP repeat a lipase panel if it's still a need to be started on statin. Patient be is bit hypocalcemic secondary to intravascular depletion with repeat basic metabolic profile it's still elevated need to be further evaluated PHYSICAL EXAMINATION: GENERAL: The patient is alert and oriented x3, not in any acute distress. Well developed, well nourished. HEENT: Pupils are round and equally reacting to light. EOMI. No scleral icterus. No conjunctival pallor. Normocephalic, atraumatic. No pharyngeal erythema. No thyromegaly. CARDIOVASCULAR: S1 and S2 present. No murmurs, rubs, or gallops. PULMONARY: Chest is clear to auscultation, no wheezing or crackles. ABDOMEN: Soft, nontender, nondistended, normoactive bowel sounds. No palpable organomegaly. MUSCULOSKELETAL: No joint swelling or deformity. EXTREMITIES: No cyanosis, clubbing, or pedal edema. NEUROLOGICAL: Gross neurological examination did not reveal any focal deficits. SKIN: No rashes. For rest of the chronic medical problems hospitalization course please refer to my HPI from yesterday Patient Condition at Discharge: Fair Plan - Discharge Summary Discharge Rx Participant: No New Discharge Prescriptions: New Losartan [Cozaar] 25 mg PO DAILY #90 tab No Action [facility] Pm (Otc Sleep Aid) 2 tab PO HS PRN PRN Reason: Insomnia Discharge Medication List [facility] P[facility] (Otc Sleep Aid) 2 tab PO HS PRN 12/31/18 [History] Losartan [Cozaar] 25 mg PO DAILY #90 tab 01/01/19 [Rx] Follow up Appointment(s)/Referral(s): Santiago Cortés MD [STAFF PHYSICIAN] - 1-2 Days (pt to follow up with Primary Care Provider.) Flo Alexander MD [STAFF PHYSICIAN] - 01/16/19 3:15 pm (pt to follow up with cardiology.) Patient Instructions/Handouts: Low Fat Diet (GEN), Heart Healthy Diet (GEN), Cholesterol and Your Health (GEN), Lipid Profile (GEN) Discharge Disposition: HOME SELF-CARE
== END 2019-01-01 14:55 | disposition home or self-care (01) ==
LOC: EC 05:55 → 1SOBS 07:25
PROVIDERS: ADMIT Hospitalist; ATTEND Hospitalist
DX: R07.89 Other chest pain (principal); I16.1 Hypertensive emergency; I10 Essential (primary) hypertension; R00.0 Tachycardia, unspecified; E78.1 Pure hyperglyceridemia; E78.5 Hyperlipidemia, unspecified; E83.51 Hypocalcemia; E66.9 Obesity, unspecified; Z68.31 Body mass index [BMI] 31.0-31.9, adult; Z87.442 Personal history of urinary calculi; Z80.1 Family history of malignant neoplasm of trachea, bronchus and lung; Z81.2 Family history of tobacco abuse and dependence
CPT/HCPCS: 96374; 99285; 36415; 93306; 93351; 85379; 83880; 80061; 80053; 84443; 82150; 82550; 82553; 83690; 83735; 84484; 85025; 85610; 85730; 71046; G0378 ×2; J0360

== ENCOUNTER → 2020-01-09 | Outpatient (CLI) | payer BC ==
[2020-01-09 17:00] LABS: INR 0.9 (<1.2); Partial Thromboplastin Time 24.5 sec (22.0-30.0); Prothrombin Time 9.8 sec (9.0-12.0)
== END | disposition home or self-care (01) ==
LOC: LABPAT 15:19
PROVIDERS: ATTEND Orthopaedic Surgery
DX: Z01.818 Encounter for other preprocedural examination (principal); Z01.812 Encounter for preprocedural laboratory examination; M87.051 Idiopathic aseptic necrosis of right femur; Z51.81 Encounter for therapeutic drug level monitoring
CPT/HCPCS: 36415; 85303; 85305; 85610; 85730; 87070; 93005

== ENCOUNTER 2020-01-14 06:45 | Inpatient (IN) | payer BC ==
[2020-01-08 09:01] VITALS: BMI 31.7
--- NOTE | 2020-01-13 09:41 | HP ---
HISTORY AND PHYSICAL CHIEF COMPLAINT: Right hip pain. 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 He has had pain ever since. It has worsened since the initial injury. He is having thigh and groin pain with any weightbearing activities. He notes he has been limping. He has tried medications without much relief. PAST MEDICAL HISTORY: Significant for hypertension. PAST SURGICAL HISTORY: Negative. CURRENT MEDICATIONS: Losartan. ALLERGIES: He denies drug allergies. FAMILY HISTORY: Significant for cancer. SOCIAL HISTORY: Significant for social alcohol use and chewing tobacco use. REVIEW OF SYSTEMS: A 16-point review of systems is otherwise reviewed and is noncontributory. PHYSICAL EXAMINATION: On examination, the patient is approximately 5 feet 10 inches, 225 pounds with endomorphic habitus. HEENT: Nonfocal. NECK: Supple. Passive motion of right hip: Flexion 65 degrees, external rotation with the hip flexed 50 degrees, internal rotation zero degrees with pain. He has approximately 1 cm shortening of the right lower extremity compared to the left. He has an antalgic gait pattern. Hid distal neurovascular exam appears intact in the right lower extremity. AP and lateral views of the right hip obtained in the office show stage 3-4 avascular necrosis of the femoral head with collapse. IMPRESSION: Right hip avascular necrosis, stage 3-4. RECOMMENDATIONS: I talked to the patient at length regarding his condition along with treatment options. At this point, he is quite symptomatic and opts to proceed with surgery. We will plan to proceed with right total hip arthroplasty. Risks and benefits were discussed at length in layman's terms. We will institute DVT prophylaxis postoperatively. MMODL / IJN: [id number] /
[~2020-01-14 06:45] MED LIST: ACETAMINOPHEN TAB 500 MG TAB PO ONE; LIDOCAINE 1% 20 ML VIAL (10MG/ML) FOR IV START INTRADERMA PRN; MELOXICAM 7.5 MG TAB PO ONE; ONDANSETRON 4 MG/2 ML VIAL IVP ONE; TRANEXAMIC ACID 1,000 MG in SODIUM CHLORIDE 0.9% 100 ML IVPB ONE
[2020-01-14] MEDS: LACTATED RINGERS 1,000 ML IV SCH (07:17)
[2020-01-14] MEDS ORDERED: DEXAMETHASONE SOD PHOSPHATE 10 MG/ML 1 ML VIAL PO ONE (07:18)
[2020-01-14] MEDS ORDERED: PHENYLEPHRINE-0.9% NACL SYG 1 MG/10 ML SYRINGE ONE (07:52)
[2020-01-14] MEDS ORDERED: fentaNYL (PF) 50 MCG/ML 2 ML AMP ONE (07:52)
[2020-01-14] MEDS ORDERED: SODIUM CHLORIDE 0.9% 100 ML BAG ONE (07:52)
[2020-01-14] MEDS ORDERED: PROPOFOL 10 MG/ML 20 ML VIAL IV ONE (07:52)
[2020-01-14] MEDS ORDERED: MIDAZOLAM 2 MG/2 ML VIAL ONE (07:52)
[2020-01-14] MEDS ORDERED: TRANEXAMIC ACID 1,000 MG/10 ML VIAL ONE (07:52)
[2020-01-14] MEDS ORDERED: ceFAZolin 3,000 MG in SODIUM CHLORIDE 0.9% IRRIGATIO 3,000 ML IRRIGATION ONE (08:29)
[2020-01-14] MEDS ORDERED: LACTATED RINGERS 1,000 ML IV ONE (09:12)
[2020-01-14] MEDS ORDERED: MAGNESIUM HYDROXIDE 2,400 MG/10 ML CUP PO PRN (09:52)
[2020-01-14] MEDS ORDERED: NALOXONE 0.4 MG/ML 1 ML VIAL IV PRN (09:52)
[2020-01-14] MEDS ORDERED: ACETAMINOPHEN TAB 325 MG TAB PO PRN (09:52)
[2020-01-14] MEDS ORDERED: HYDROcodone/APAP 7.5-325MG 1 EACH TAB PO PRN (09:52)
[2020-01-14] MEDS ORDERED: ONDANSETRON 4 MG/2 ML VIAL IVP PRN (09:52)
[2020-01-14] MEDS ORDERED: traMADol 50 MG TAB PO PRN (09:52)
[2020-01-14] MEDS: HYDROmorphone 0.5 MG/0.5 ML SYRINGE IVP PRN ×2 (10:14→10:33)
--- NOTE | 2020-01-14 10:18 | P.OP ---
Date of Procedure: 01/14/20 Preoperative Diagnosis: Right hip avascular necrosisstage 3/4 Postoperative Diagnosis: Same Procedure(s) Performed: Right total hip arthroplastylateral approachpress-fit Implants: Depuy Corail size 11 KLA press-fit femoral stem, 36 mm +1.5 cobalt chrome femoral head, 56 mm [place] acetabular shell with neutral polyethylene liner Anesthesia: spinal Surgeon: Pedro Wheeler Upholstery Parts Sorter #1: Randy Gonzalez Estimated Blood Loss (ml): 250 Pathology: other (Femoral head) Condition: stable Disposition: PACU Indications for Procedure: The patient's a 49-year-old male who presents with progressive right hip pain secondary to avascular necrosis. A discussion of the risks and benefits of operative intervention was made with the patient. He opted proceed with surgery. Operative risks to include infection, neurovascular injury, development of blood clots, possible fracture, possible leg length discrepancy, possible instability and need for subsequent procedures was discussed. Informed consent was obtained. Operative Findings: As below Description of Procedure: The patient was brought to the operating room, and after induction of spinal anesthesia was placed in a lateral decubitus position. The bony prominences were appropriately padded. The pelvis was stable perpendicular to the floor with a pegboard. The right lower extremity was prepped and draped in normal fashion. A 12 cm incision was then made centered over the greater trochanter extending superiorly to level the ASIS and distally in line with the femoral shaft. The skin and subcutaneous tissues were divided sharply. Electrocautery was used for hemostasis. The fascia tran and gluteus kimberly fascia was split in line with the skin incision. The muscle fibers were bluntly dissected proximally. A self-retaining retractor was placed. The anterior and posterior margins of the gluteus medius muscles identified and the anterior two thirds was detached from the greater trochanter with electrocautery. The gluteus minimus tendon was identified and detached in a similar fashion. A wide capsulotomy was performed. The femoral neck fracture was identified in the lower neck cut was made approximately 1 1/2 cm above the level of the lesser trochanter with a sagittal saw at a 45 the shaft. The head was then extracted with a corkscrew. Attention was then paid towards preparing the acetabular. Anterior and posterior retractors were placed. The remaining capsular labral tissues debrided sharply clearly defining the acetabular margins. Began reaming with a 47 mm reamer taking care to initially medialize, then reaming at 45 of abduction and 20 of anteversion. Sequential reaming is performed up to 55 mm. This was down to bleeding bony surface. A trial 56 mm acetabular shell was inserted at 45 of abduction and 20 of anteversion. This was fully seated. There was good rim fit and stability. Two 6.5 mm x 25 mm cancellus screws were inserted with good purchase. A neutral polyethylene liner was then impacted. Care taken to avoid any soft tissue interposition. Attention was then paid towards preparing the proximal femur. A box chisel was used to open the metaphyseal region. A canal finder was used to find the femoral canal. Sequential broaching was performed up to a size 11. This is placed in 15 of anteversion with the leg perpendicular floor judging off the trans-epicondylar axis. There good rotational stability. A calcar mill was used to fashion the medial calcar. A trial KLA neck along with a 36 mm + 1.5 trial head was placed. The hip was gently reduced. It was taken through range of motion. I felt to be stable in flexion and extension with internal and external rotation. I felt there was adequate scientologist of soft tissue tension. The hip was gently dislocated. The trial components removed. Pulsatile lavage was utilized. The final size 11 KLA collared femoral stem was inserted again with the leg perpendicular to the floor in 15 of anteversion. Again there was good rotational stability. A 36 mm + 1.5 cobalt chrome femoral head was gently impacted. The hip was gently reduced. Again it was taken through motion and felt to be stable in flexion and extension with internal and external rotation. Pulsatile lavage was again utilized. With the leg in abduction the gluteus minimus and medius tendons reattached to the greater trochanter with #2 Ethibond suture. There was minimal drainage therefore a deep drain was not placed. The fascia tran and gluteus kimberly fascia was closed with #2 Ethibond suture. The subcutaneous tissues were reapproximated interrupted 2-0 Vicryl sutures. The skin was reapproximated with 3-0 subcuticular strata fix suture. Skin tape and adhesive was applied. A sterile dressing was applied. The patient was awoken from sedation and transferred to recovery room in good condition. Blood loss was estimated 250 mL. No complications were incurred. Sponge and needle counts were correct in the case. Juan ALVAREZ assisted during the major composes case to include exposure, implantation, and closure.
--- NOTE | 2020-01-14 10:33 | XR ---
EXAMINATION TYPE: XR Hip Limited RT DATE OF EXAM: 01/14/2020 CLINICAL HISTORY: Right hip pain and osteoarthritis. TECHNIQUE: Single AP portable view of right hip is obtained immediately postoperatively. COMPARISON: None. FINDINGS: Metallic hardware from right hip arthroplasty is seen and appears satisfactory in alignment and position. There is evidence of recent surgery with subcutaneous gas noted laterally. IMPRESSION: Metallic hardware from right hip arthroplasty is satisfactory in position.
[2020-01-14] MEDS: HYDROmorphone 1 MG/ML 1 ML SYRINGE IVP PRN ×2 (11:25→15:59)
--- NOTE | 2020-01-14 11:57 | P.CONS ---
History of Present Illness - Reason for Consult Recommendations regarding anti-hypertensive medications - History of Present Illness Patient is a pleasant 49-year-old male with only history of hypertension came in for L leg to right hip arthroplasty patient underwent surgery patient was never fully catheter patient the pain is well-controlled patient did not pass gas yet. Patient did not move his bowels yet. Patient just came from surgery today morning patient denied any fever chills dysuria cough. Review of Systems REVIEW OF SYSTEMS: CONSTITUTIONAL: No fever, no malaise, no fatigue. HEENT: No recent visual problems or hearing problems. Denied any sore throat. CARDIOVASCULAR: No chest pain, orthopnea, PND, no palpitations, no syncope. PULMONARY: No shortness of breath, no cough, no hemoptysis. GASTROINTESTINAL: No diarrhea, no nausea, no vomiting, no abdominal pain. NEUROLOGICAL: No headaches, no weakness, no numbness. HEMATOLOGICAL: Denies any bleeding or petechiae. GENITOURINARY: Denies any burning micturition, frequency, or urgency. MUSCULOSKELETAL/RHEUMATOLOGICAL: Denies any joint pain, swelling, or any muscle pain. ENDOCRINE: Denies any polyuria or polydipsia. The rest of the 14-point review of systems is negative. Past Medical History Past Medical History: Hypertension Additional Past Medical History / Comment(s): Kidney stones x2 pt passed on his own, HTN for 1 year-pt did not pursue tx d/t no insurance coverage. History of Any Multi-Drug Resistant Organisms: None Reported Past Surgical History: Orthopedic Surgery, Tonsillectomy Additional Past Surgical History / Comment(s): R knee arthroscopic surgery. Past Anesthesia/Blood Transfusion Reactions: No Reported Reaction Past Psychological History: No Psychological Hx Reported Additional Psychological History / Comment(s): Pt resides with his brother in law. He is independent. Smoking Status: Never smoker Past Alcohol Use History: Occasional Past Drug Use History: None Reported - Past Family History Mother Family Medical History: Cancer Additional Family Medical History / Comment(s): Mother of lung cancer at the age of 68yrs. She was a smoker. Father History Unknown: Yes Family Medical History: Unable to Obtain Additional Family Medical History / Comment(s): Father left when pt was 4 yrs old. Medications and Allergies Home Medications Medication Instructions Recorded Confirmed Type Losartan [Cozaar] 50 mg PO QAM 01/08/20 01/14/20 History Motrin(Unknown Dose) 2 tab PO TID 01/08/20 01/08/20 History Allergies Allergy/AdvReac Type Severity Reaction Status Date / Time No Known Allergies Allergy Verified 01/14/20 06:59 Physical Exam Vitals: Vital Signs Temp Pulse Resp BP Pulse Ox 01/14/20 10:49 62 16 135/77 98 01/14/20 10:34 76 16 118/71 98 01/14/20 10:19 79 16 128/67 98 01/14/20 10:04 86 16 117/71 95 01/14/20 07:54 157/90 01/14/20 07:03 98.2 F 101 H 17 177/112 99 Intake and Output 01/13/20 01/14/20 01/14/20 22:59 06:59 14:59 Intake Total 1601 Output Total 250 Balance 1351 Intake: IV 1601 Output: Estimated Blood Loss 250 Other: Weight 102.058 kg PHYSICAL EXAMINATION: GENERAL: The patient is alert and oriented x3, not in any acute distress. Well developed, well nourished. HEENT: Pupils are round and equally reacting to light. EOMI. No scleral icterus. No conjunctival pallor. Normocephalic, atraumatic. No pharyngeal erythema. No thyromegaly. CARDIOVASCULAR: S1 and S2 present. No murmurs, rubs, or gallops. PULMONARY: Chest is clear to auscultation, no wheezing or crackles. ABDOMEN: Soft, nontender, nondistended, normoactive bowel sounds. No palpable organomegaly. MUSCULOSKELETAL: Deferred to orthopedic surgery EXTREMITIES: No cyanosis, clubbing, or pedal edema. NEUROLOGICAL: Gross neurological examination did not reveal any focal deficits. SKIN: No rashes. Assessment and Plan Plan: -Hypertension to prevent perioperative hypotension which is expected in the postoperative period on hold off on antidepressant medications will monitor the blood pressure needed will be started back on his anti-happens medications -Right hip arthroplasty: Pain management as per primary service -DVT prophylaxis patient is on Xarelto
[2020-01-14] MEDS: HYDROcodone/APAP 7.5-325MG 1 EACH TAB PO PRN ×2 (13:45→19:28)
[2020-01-14] MEDS: SENNOSIDES-DOCUSATE SODIUM 1 EACH TAB PO SCH (19:27)
[2020-01-15] MEDS: HYDROmorphone 0.5 MG/0.5 ML SYRINGE IVP PRN ×2 (00:02→11:35)
[2020-01-15] MEDS: LACTATED RINGERS 1,000 ML IV SCH (05:03)
[2020-01-15] MEDS: HYDROcodone/APAP 7.5-325MG 1 EACH TAB PO PRN ×3 (07:17→19:32)
[2020-01-15 08:31] LABS: Basophils % (A) 0 %; Eosinophils # (A) 0.1 k/uL (0-0.7); Eosinophils % (A) 1 %; HCT 34.9 % (39.0-53.0); Lymphocytes # (A) 1.9 k/uL (1.0-4.8); Lymphocytes % (A) 22 %; MCH 32.4 pg (25.0-35.0); MCHC 34.7 g/dL (31.0-37.0); MCV 93.3 fL (80.0-100.0); Mean Platelet Volume 8.6; Monocytes # (A) 0.4 k/uL (0-1.0); Monocytes % (A) 5 %; Neutrophils # (A) 6.1 k/uL (1.3-7.7); Neutrophils % (A) 70 %; Platelet Count 192 k/uL (150-450); RBC 3.74 m/uL (4.30-5.90); RDW 12.8 % (11.5-15.5); WBC 8.7 k/uL (3.8-10.6)
[2020-01-15] MEDS: FAMOTIDINE 20 MG TAB PO SCH (08:43)
[2020-01-15] MEDS: RIVAROXABAN 10 MG TAB PO SCH (08:43)
[2020-01-15 08:46] LABS: HGB 12.1 gm/dL (13.0-17.5)
--- NOTE | 2020-01-15 10:15 | P.PN ---
Subjective Progress Note Date: 01/15/20 Principal diagnosis: Status post right total hip arthroplasty Patient is evaluated today at bedside, he is resting his hospital bed. Patient has noticed more pain this morning and he had yesterday. He has not worked with physical therapy at this time. Denies any chest pain or shortness of breath. Objective - Vital Signs Vital signs: Vital Signs Temp 98.1 F 01/15/20 07:45 Pulse 75 01/15/20 07:45 Resp 18 01/15/20 07:45 BP 150/97 01/15/20 07:45 Pulse Ox 96 01/15/20 07:45 Intake & Output 01/14/20 01/15/20 01/15/20 18:59 06:59 18:59 Intake Total 1601 Output Total 950 200 Balance 651 -200 Weight 102.058 kg Intake: IV 1601 Output: Urine 700 200 Estimated Blood Loss 250 Other: Voiding Method Toilet Urinal - Exam Right lower extremity: Incision is clean, dry, and intact. The exofin fusion tape is in good condition. There is minimal soft tissue swelling and ecchymosis surrounding the medial and lateral aspects of the incision. Calf is soft, no tenderness with palpation. Plantar flexion, dorsiflexion, EHL, FHL are intact. Sensory exam to light touch throughout the extremity is intact, dorsal pedis pulses 2+. - Labs CBC & Chem 7: 01/15/20 07:17 Labs: Abnormal Lab Results - Last 24 Hours (Table) 01/15/20 Range/Units 07:17 RBC 3.74 L (4.30-5.90) m/uL Hgb 12.1 L D (13.0-17.5) gm/dL Hct 34.9 L (39.0-53.0) % Assessment and Plan Plan: Assessment: Postoperative day #1 status post right total hip arthroplasty Plan: Pain control, continue with current medication, we'll adjust oral medication slightly. IV pain medication as needed GI and DVT prophylaxis, continue current medication Wound care instructions discussed Icing and elevating techniques discussed medical recommendations We'll switch to inpatient status, hopeful discharge home tomorrow Time with Patient: Less than 30
--- NOTE | 2020-01-15 11:56 | P.PN ---
Subjective 49-year-old male with only history of hypertension came in for L leg to right hip arthroplasty patient underwent surgery patient was never fully catheter patient the pain is well-controlled patient did not pass gas yet. Patient did not move his bowels yet. 01/15/2020 Patient did move his bowel patient is clinically doing well except for pain in the surgical site area Constitutional: Denied any fatigue denied any fever. Cardio vascular: denied any chest pain, palpitations Gastrointestinal denied any nausea vomiting Pulmonary: Denied any shortness of breath cough Neurologic denied any new focal deficits All inpatient medications were reviewed and appropriate changes in these medications as dictated in the interval history and assessment and plan. Objective - Vital Signs Vital signs: Vital Signs Temp 98.1 F 01/15/20 07:45 Pulse 75 01/15/20 07:45 Resp 18 01/15/20 07:45 BP 150/97 01/15/20 07:45 Pulse Ox 96 01/15/20 07:45 Intake & Output 01/14/20 01/15/20 01/15/20 18:59 06:59 18:59 Intake Total 1601 Output Total 950 200 Balance 651 -200 Weight 102.058 kg Intake: IV 1601 Output: Urine 700 200 Estimated Blood Loss 250 Other: Voiding Method Toilet Urinal - Exam PHYSICAL EXAMINATION: GENERAL: The patient is alert and oriented x3, not in any acute distress. Well developed, well nourished. HEENT: Pupils are round and equally reacting to light. EOMI. No scleral icterus. No conjunctival pallor. Normocephalic, atraumatic. No pharyngeal erythema. No thyromegaly. CARDIOVASCULAR: S1 and S2 present. No murmurs, rubs, or gallops. PULMONARY: Chest is clear to auscultation, no wheezing or crackles. ABDOMEN: Soft, nontender, nondistended, normoactive bowel sounds. No palpable organomegaly. MUSCULOSKELETAL: Deferred to orthopedic surgery EXTREMITIES: No cyanosis, clubbing, or pedal edema. NEUROLOGICAL: Gross neurological examination did not reveal any focal deficits. SKIN: No rashes. - Labs CBC & Chem 7: 01/15/20 07:17 Labs: Abnormal Lab Results - Last 24 Hours (Table) 01/15/20 Range/Units 07:17 RBC 3.74 L (4.30-5.90) m/uL Hgb 12.1 L D (13.0-17.5) gm/dL Hct 34.9 L (39.0-53.0) % Assessment and Plan Plan: -Hypertension patient blood pressure started going up patient will be resumed on losartan -Right hip arthroplasty: Pain management as per primary service -DVT prophylaxis patient is on Xarelto
[2020-01-15] MEDS: LOSARTAN 50 MG TAB PO SCH (12:19)
[2020-01-15] MEDS: hydrOXYzine PAMOATE 25 MG CAP PO PRN ×2 (13:19→19:33)
[2020-01-15] MEDS: HYDROmorphone 1 MG/ML 1 ML SYRINGE IVP PRN ×3 (14:43→22:25)
[2020-01-15] MEDS: SENNOSIDES-DOCUSATE SODIUM 1 EACH TAB PO SCH (19:33)
[2020-01-16] MEDS: HYDROcodone/APAP 7.5-325MG 1 EACH TAB PO PRN ×3 (01:24→14:47)
[2020-01-16] MEDS: HYDROmorphone 1 MG/ML 1 ML SYRINGE IVP PRN ×2 (01:24→05:54)
[2020-01-16] MEDS: hydrOXYzine PAMOATE 25 MG CAP PO PRN ×2 (05:53→14:47)
[2020-01-16 08:40] VITALS: BP 118/69; PULSE 110; RESP 16; TEMP 101.7
[2020-01-16] MEDS: RIVAROXABAN 10 MG TAB PO SCH (09:10)
[2020-01-16] MEDS: LOSARTAN 50 MG TAB PO SCH (09:10)
[2020-01-16] MEDS: FAMOTIDINE 20 MG TAB PO SCH (09:10)
[2020-01-16] MEDS: LACTATED RINGERS 1,000 ML IV SCH (09:11)
[2020-01-16 12:01] LABS: HCT 35.9 % (39.0-53.0); HGB 12.4 gm/dL (13.0-17.5); MCH 32.3 pg (25.0-35.0); MCHC 34.5 g/dL (31.0-37.0); MCV 93.9 fL (80.0-100.0); Mean Platelet Volume 8.3; Platelet Count 222 k/uL (150-450); RBC 3.82 m/uL (4.30-5.90); RDW 12.9 % (11.5-15.5); WBC 11.1 k/uL (3.8-10.6)
--- NOTE | 2020-01-16 12:25 | P.PN ---
Subjective Progress Note Date: 01/16/20 Principal diagnosis: Status post right total hip arthroplasty Patient is evaluated today at bedside, he is resting his hospital bed. Patient's pain is better controlled today.. Denies any chest pain or shortness of breath. Objective - Vital Signs Vital signs: Vital Signs Temp 101.7 F H 01/16/20 07:00 Pulse 110 H 01/16/20 07:00 Resp 16 01/16/20 07:00 BP 118/69 01/16/20 07:00 Pulse Ox 92 L 01/16/20 07:00 Intake & Output 01/15/20 01/16/20 01/16/20 18:59 06:59 18:59 Intake Total 500 500 Output Total 200 Balance 500 -200 500 Intake: Oral 500 500 Output: Urine 200 Other: Voiding Method Toilet Urinal # Voids 2 1 - Exam Right lower extremity: Incision is clean, dry, and intact. The exofin fusion tape is in good condition. There is minimal soft tissue swelling and ecchymosis surrounding the medial and lateral aspects of the incision. Calf is soft, no tenderness with palpation. Plantar flexion, dorsiflexion, EHL, FHL are intact. Sensory exam to light touch throughout the extremity is intact, dorsal pedis pulses 2+. - Labs CBC & Chem 7: 01/16/20 11:49 Labs: Abnormal Lab Results - Last 24 Hours (Table) 01/16/20 Range/Units 11:49 WBC 11.1 H (3.8-10.6) k/uL RBC 3.82 L (4.30-5.90) m/uL Hgb 12.4 L (13.0-17.5) gm/dL Hct 35.9 L (39.0-53.0) % Assessment and Plan Plan: Assessment: Postoperative day #2 status post right total hip arthroplasty Plan: Pain control, continue with current medication GI and DVT prophylaxis, Eliquis 2.5mg Wound care instructions discussed Icing and elevating techniques discussed medical recommendations Plan for discharge home today Time with Patient: Less than 30
--- NOTE | 2020-01-16 12:30 | P.DS ---
Providers Date of admission: 01/14/2020 Expected date of discharge: 01/16/20 Attending physician: Pedro Wheeler Consults: 01/14/20 09:52 Consult Physician Routine Consulting Provider: Cherelle Villafana Reason/Comments: medical management Do you want consulting provider notified?: Yes Primary care physician: Cherelle Villafana MD Hospital Course: Date of admission: 01/14/2020 Date of discharge: 01/16/2020 Admission diagnosis: Status post right total hip arthroplasty Discharge diagnosis: Same Attending physician: Dr. Wheeler Surgical procedures: Right total hip arthroplasty Brief history: Patient is a 49-year-old male with a history of progressive right hip avascular necrosis. At this point patient has failed conservative treatment measures and has opted to proceed with a elective right total hip arthroplasty. Hospital course: Details of patient's surgery can be found in operative report. Patient tolerated the procedure well and was subsequently transported to orthopedic floor. Patient's orthopeidc and medical care was provided daily. Patient had daily laboratory tests performed for evaluation of overall blood counts. Patient had daily physical therapy to include strengthening range of motion as well as education with walker ambulation. Patient was treated with Xarelto for their postoperative DVT prophylaxis during their inpatient stay. Patient was noted to have a relatively uneventful postoperative course. Patient reported satisfactory pain control with oral pain medications by postoperative day 0. Patient showed satisfactory progress with physical therapy. Patient moved steadily through the program and had no difficulty meeting the goals by postoperative day 2. Given patient's otherwise satisfactory course and having met physical therapy goals, plan is to discharge patient home on postoperative day 2. Discharge condition/disposition: Patient will be discharged home in stable condition. Discharge medications: Instructions are given on resumption of patient's normal daily medications per primary care recommendation, in addition patient will be prescribed [place] 7.5 mg/5 mg, tramadol 50 mg, Vistaril 25 mg, Colace 100mg, Eliquis 2.5mg. Discharge instructions: 1. Wound care and infection precautions, keep incision dry and covered while showering, no lotions, creams, moisturizers. No soaking, tubs, pools, hottubs. Do not scrub over the incision. 2. Weight-bear as tolerated with walker / cane until follow-up. 3. Ice and elevate when necessary. Do not exceed 20 minutes per hour with ice pack. 4. Utilize compression sleeve until seen at first follow up appointment. 5. Visiting nursing care. 6. Home physical therapy. 7. Pain meds and anticoagulants per prescription. 8. Pain medication has potential to cause constipation. Increase oral fluid and fiber intake. Contact primary care provider if you have not had a bowel movement within 48 hours after discharge 9. No anti-inflammatory medication until discussed at first post operative visit, this including Motrin, Aleve, Mobic, Diclofenac. 10. Follow up in office at 2 weeks postop with Juan Gonzalez PA-C 11. Follow up with your primary care doctor 7-10 days after discharge. 12. Contact [facility] with any questions, . Procedures: Right total hip arthroplasty Patient Condition at Discharge: Good Plan - Discharge Summary Discharge Rx Participant: Yes New Discharge Prescriptions: New Docusate [Colace] 100 mg PO DAILY #30 capsule Apixaban [Eliquis] 2.5 mg PO BID #60 tab HYDROcodone/APAP 7.5-325MG [[place] 7.5] 1 - 2 each PO Q6HR PRN #56 tab PRN Reason: Pain traMADol HCl [Ultram] 50 mg PO Q6H PRN #28 tab PRN Reason: Pain hydrOXYzine PAMOATE [Vistaril] 25 mg PO Q6HR #40 capsule No Action Losartan [Cozaar] 50 mg PO QAM Motrin(Unknown Dose) 2 tab PO TID Discharge Medication List Losartan [Cozaar] 50 mg PO QAM 01/08/20 [History] Motrin(Unknown Dose) 2 tab PO TID 01/08/20 [History] Apixaban [Eliquis] 2.5 mg PO BID #60 tab 01/16/20 [Rx] Docusate [Colace] 100 mg PO DAILY #30 capsule 01/16/20 [Rx] HYDROcodone/APAP 7.5-325MG [[place] 7.5] 1 - 2 each PO Q6HR PRN #56 tab 01/16/20 [Rx] hydrOXYzine PAMOATE [Vistaril] 25 mg PO Q6HR #40 capsule 01/16/20 [Rx] traMADol HCl [Ultram] 50 mg PO Q6H PRN #28 tab 01/16/20 [Rx] Follow up Appointment(s)/Referral(s): [facility] [NON-STAFF] - As Needed (walker) [facility], [NON-STAFF] - As Needed Randy Gonzalez PAC [PHYSICIAN LEAD [employer] PROGRAMMER] - 01/31/20 1:50 pm Cherelle Villafana MD [Primary Care Provider] - 1 Week Activity/Diet/Wound Care/Special Instructions: Orthopedic Discharge Instructions: 1. Wound care and infection precautions, keep incision dry and covered while showering, no lotions, creams, moisturizers. No soaking, pools, hot tubs. Do not scrub over incision. 2. Weight-bear as tolerated with walker / cane until follow-up. 3. Ice and elevate when necessary. Do not exceed 20 minutes per hour with ice pack. 4. Utilize compression sleeve until seen at first follow up appointment. 5. Pain meds and anticoagulants per prescription. 6. Pain medication has potential to cause constipation. Increase oral fluid and fiber intake. Contact primary care provider if you have not had a bowel movement within 48 hours after discharge. 7. No anti-inflammatory medication until discussed at first post operative visit, this including Motrin, Aleve, Mobic, Diclofenac. 8. Follow up in office at 2 weeks postop with Juan Gonzalez PA-C 9. Follow up with your primary care doctor 7-10 days after discharge. 10. Contact [facility] with any questions, . . Discharge Disposition: HOME WITH HOME HEALTH SERVICES
[2020-01-16 12:43] LABS: African American GFR (CKD) >90 (>60 ml/min/1.73 sqM); Anion Gap 11 mmol/L; Blood Urea Nitrogen 17 mg/dL (9-20); Calcium 9.5 mg/dL (8.4-10.2); Carbon Dioxide 24 mmol/L (22-30); Chloride 98 mmol/L (98-107); Glucose 112 mg/dL (74-99); Non-African American GFR(CKD) >90 (>60 ml/min/1.73 sqM); Potassium 3.8 mmol/L (3.5-5.1); Sodium 133 mmol/L (137-145)
--- NOTE | 2020-01-16 12:45 | XR ---
EXAMINATION TYPE: XR chest 2V DATE OF EXAM: 01/16/2020 COMPARISON: 12/31/2018 INDICATION: Rule out pneumonia, recent surgery TECHNIQUE: Frontal and lateral views of the chest are obtained. FINDINGS: The heart size is normal. The pulmonary vasculature is normal. The lungs are clear. IMPRESSION: 1. No acute pulmonary process.
--- NOTE | 2020-01-16 13:16 | P.PN ---
Subjective 49-year-old male with only history of hypertension came in for L leg to right hip arthroplasty patient underwent surgery patient was never fully catheter patient the pain is well-controlled patient did not pass gas yet. Patient did not move his bowels yet. 01/15/2020 Patient did move his bowel patient is clinically doing well except for pain in the surgical site area 01/16/2020 Patient had high-grade fever here one episode because of which I'm obtaining blood cultures, urine cultures, urine analysis chest x-ray, patient although denied any cough denied any dysuria denied any diarrhea surgical site areas for arthritic surgeries clean and did discuss with the patient as well. Patient fever is probably secondary to atelectasis after chest x-ray and a UA of that okay as patient is clinically looking well will dish patient can be discharged but patient was asked to check the temperature at home he continues to have fever call PCP or come back to the hospital. Chest x-ray did not show any significant abnormality. urine analysis is still pending Constitutional: Denied any fatigue denied any fever. Cardio vascular: denied any chest pain, palpitations Gastrointestinal denied any nausea vomiting Pulmonary: Denied any shortness of breath cough Neurologic denied any new focal deficits All inpatient medications were reviewed and appropriate changes in these medications as dictated in the interval history and assessment and plan. Objective - Vital Signs Vital signs: Vital Signs Temp 101.7 F H 01/16/20 07:00 Pulse 110 H 01/16/20 07:00 Resp 16 01/16/20 07:00 BP 118/69 01/16/20 07:00 Pulse Ox 92 L 01/16/20 07:00 Intake & Output 01/15/20 01/16/20 01/16/20 18:59 06:59 18:59 Intake Total 500 500 Output Total 200 Balance 500 -200 500 Intake: Oral 500 500 Output: Urine 200 Other: Voiding Method Toilet Urinal # Voids 2 1 - Exam PHYSICAL EXAMINATION: GENERAL: The patient is alert and oriented x3, not in any acute distress. Well developed, well nourished. HEENT: Pupils are round and equally reacting to light. EOMI. No scleral icterus. No conjunctival pallor. Normocephalic, atraumatic. No pharyngeal erythema. No thyromegaly. CARDIOVASCULAR: S1 and S2 present. No murmurs, rubs, or gallops. PULMONARY: Chest is clear to auscultation, no wheezing or crackles. ABDOMEN: Soft, nontender, nondistended, normoactive bowel sounds. No palpable or ganomegaly. MUSCULOSKELETAL: Deferred to orthopedic surgery EXTREMITIES: No cyanosis, clubbing, or pedal edema. NEUROLOGICAL: Gross neurological examination did not reveal any focal deficits. SKIN: No rashes. - Labs CBC & Chem 7: 01/16/20 11:49 01/16/20 11:49 Labs: Abnormal Lab Results - Last 24 Hours (Table) 01/16/20 01/16/20 Range/Units 11:49 11:49 WBC 11.1 H (3.8-10.6) k/uL RBC 3.82 L (4.30-5.90) m/uL Hgb 12.4 L (13.0-17.5) gm/dL Hct 35.9 L (39.0-53.0) % Sodium 133 L (137-145) mmol/L Glucose 112 H (74-99) mg/dL Assessment and Plan Plan: fever: Further workup and management as mentioned above plus patient is looking well and patient is wishing to go home probably it's okay for the patient to go home and if he has fever has to come back to the hospital or call PCP -Hypertension -Right hip arthroplasty: Pain management as per primary service -DVT prophylaxis patient is on Xarelto
[2020-01-16 14:29] LABS: Appearance,Urine Clear (Clear); Bilirubin,Urine Negative (Negative); Blood,Urine Negative (Negative); Color,Urine Yellow; Glucose,Urine (UA) Negative (Negative); Ketones,Urine Negative (Negative); Leukocyte Esterase,Urine Negative (Negative); Nitrite,Urine Negative (Negative); PH, Urine 5.5 (5.0-8.0); Protein,Urine Trace (Negative); Specific Gravity,Urine 1.028 (1.001-1.035); Urobilinogen,Urine <2.0 mg/dL (<2.0)
== END 2020-01-16 15:47 | disposition home health service (06) | DRG 470 ==
LOC: OR 06:45 → 4SSUR 10:00 → OR 01-15 11:30
PROVIDERS: ADMIT Orthopaedic Surgery; ATTEND Orthopaedic Surgery
PROC: 0SR904A Replacement of Right Hip Joint with Ceramic on Polyethylene Synthetic Substitute, Uncemented, Open Approach (ICD-10-PCS; principal; 2020-01-14 08:00)
DX: M87.9 Osteonecrosis, unspecified (principal); J98.11 Atelectasis; M89.751 Major osseous defect, right pelvic region and thigh; I10 Essential (primary) hypertension; F17.290 Nicotine dependence, other tobacco product, uncomplicated; Z79.1 Long term (current) use of non-steroidal anti-inflammatories (NSAID); Z79.899 Other long term (current) drug therapy; Z87.442 Personal history of urinary calculi; Z98.890 Other specified postprocedural states; Z80.9 Family history of malignant neoplasm, unspecified; Z80.1 Family history of malignant neoplasm of trachea, bronchus and lung
CPT/HCPCS: 71046; 73501; 80048; 81003; 85025; 85027; 86850; 86900; 86901; 87040; 88305; 88311

== ENCOUNTER 2023-12-19 09:52 | Emergency (ER) | payer BC ==
[2023-12-19] MEDS ORDERED: ASPIRIN 81 MG PO STA (10:06)
[2023-12-19] MEDS ORDERED: NITROGLYCERIN SL TABS 0.4 MG TAB SUBLINGUAL STA (10:06)
[2023-12-19 10:16] VITALS: RESP 18
[2023-12-19 10:19] LABS: Basophils % (A) 0 %; Eosinophils # (A) 0.1 k/uL (0-0.7); Eosinophils % (A) 1 %; HCT 46.2 % (39.0-53.0); Lymphocytes # (A) 1.9 k/uL (1.0-4.8); Lymphocytes % (A) 18 %; MCH 31.8 pg (25.0-35.0); MCHC 34.7 g/dL (31.0-37.0); MCV 91.9 fL (80.0-100.0); Mean Platelet Volume 7.8; Monocytes # (A) 0.4 k/uL (0-1.0); Monocytes % (A) 4 %; Neutrophils # (A) 7.8 k/uL (1.3-7.7); Neutrophils % (A) 76 %; Platelet Count 257 k/uL (150-450); RBC 5.03 m/uL (4.30-5.90); RDW 12.7 % (11.5-15.5); WBC 10.3 k/uL (3.8-10.6)
--- NOTE | 2023-12-19 10:19 | ED ---
Chest Pain HPI - General Chief Complaint: Chest Pain Stated Complaint: high blood pressure Time Seen by Provider: 12/19/23 10:02 Source: patient, RN notes reviewed Mode of arrival: ambulatory Limitations: no limitations - History of Present Illness Initial Comments: 53-year-old male presents emergency department from PCPs office with chief complaint of chest pain, hypertension. Patient dates he has a history of hypertension and hyperlipidemia he states he has been off his medication for a year and a half due to insurance reasons. He states that he went to his PCP because has been having symptoms and to get back on his medications. Patient states he has been sick since the beginning of November with cough and cold-like symptoms which are improving but now is left with chest pain has been intermittent. He still states he has pressure right now. He denies any intake of aspirin from PCP. Patient denies any history of DVT or PE denies abdominal complaints. He states he does have family cardiac disease in which she states his sister just had an MN 6 months ago. - Related Data Home Medications Medication Instructions Recorded Confirmed Losartan [Cozaar] 50 mg PO QAM 01/08/20 01/14/20 Motrin(Unknown Dose) 2 tab PO TID 01/08/20 01/08/20 Previous Rx's Medication Instructions Recorded Apixaban [Eliquis] 2.5 mg PO BID #60 tab 01/16/20 Docusate [Colace] 100 mg PO DAILY #30 capsule 01/16/20 HYDROcodone/APAP 7.5-325MG [[place] 1 - 2 each PO Q6HR PRN #56 tab 01/16/20 7.5] hydrOXYzine pamoate [Vistaril] 25 mg PO Q6HR #40 capsule 01/16/20 traMADol HCl [Ultram] 50 mg PO Q6H PRN #28 tab 01/16/20 Losartan Potassium 100 mg PO DAILY #30 tab 12/19/23 Allergies Allergy/AdvReac Type Severity Reaction Status Date / Time No Known Allergies Allergy Verified 01/14/20 06:59 Review of Systems ROS Statement: Those systems with pertinent positive or pertinent negative responses have been documented in the HPI. ROS Other: All systems not noted in ROS Statement are negative. EKG Findings - EKG Comments: EKG Findings:: EKG performed at 10: 10 sinus rhythm rate of 77 SD 153 QRS 94 QT/QTc 377/409 - EKG Results: EKG: interpreted by SUYAPA Past Medical History Past Medical History: Hypertension Additional Past Medical History / Comment(s): Kidney stones x2 pt passed on his own, HTN for 1 year-pt did not pursue tx d/t no insurance coverage. History of Any Multi-Drug Resistant Organisms: None Reported Past Surgical History: Orthopedic Surgery, Tonsillectomy Additional Past Surgical History / Comment(s): R knee arthroscopic surgery. Past Anesthesia/Blood Transfusion Reactions: No Reported Reaction Past Psychological History: No Psychological Hx Reported Past Alcohol Use History: Occasional Past Drug Use History: None Reported - Past Family History Mother Family Medical History: Cancer Additional Family Medical History / Comment(s): Mother of lung cancer at the age of 68yrs. She was a smoker. Father History Unknown: Yes Family Medical History: Unable to Obtain Additional Family Medical History / Comment(s): Father left when pt was 4 yrs old. General Exam Limitations: no limitations General appearance: alert, in no apparent distress Head exam: Present: atraumatic, normocephalic, normal inspection Eye exam: Present: normal appearance, PERRL, EOMI. Absent: scleral icterus, conjunctival injection, periorbital swelling ENT exam: Present: normal exam, normal oropharynx, mucous membranes moist Neck exam: Present: normal inspection, full ROM. Absent: tenderness, mening ismus, lymphadenopathy Respiratory exam: Present: normal lung sounds bilaterally. Absent: respiratory distress, wheezes, rales, rhonchi, stridor Cardiovascular Exam: Present: regular rate, normal rhythm, normal heart sounds. Absent: systolic murmur, diastolic murmur, rubs, gallop, clicks GI/Abdominal exam: Present: soft, normal bowel sounds. Absent: distended, tenderness, guarding, rebound, rigid Course Vital Signs 12/19/23 12/19/23 12/19/23 09:53 10:14 10:21 Temperature 98.0 F Pulse Rate 87 76 Respiratory 20 18 Rate Blood Pressure 228/127 183/119 O2 Sat by Pulse 98 Oximetry 12/19/23 12/19/23 12/19/23 10:48 11:26 11:37 Temperature Pulse Rate 77 81 Respiratory 18 Rate Blood Pressure 147/72 140/96 151/101 O2 Sat by Pulse 96 98 Oximetry Chest Pain MDM - MDM Was pt. sent in by a medical professional or institution (ANTONIO Urrutia, ACTUARY MANAGER, urgent care, hospital, or [facility]...) When possible be specific @ -PCP Did you speak to anyone other than the patient for history (EMS, parent, family, police, friend...)? What history was obtained from this source @ -No Did you review nursing and triage notes (agree or disagree)? Why? @ -I reviewed and agree with nursing and triage notes Were old charts reviewed (outside hosp., previous admission, EMS record, old EKG, old radiological studies, urgent care reports/EKG's, [facility] records)? Report findings @ -No old charts were reviewed Differential Diagnosis (chest pain, altered mental status, abdominal pain women, abdominal pain men, vaginal bleeding, weakness, fever, dyspnea, syncope, headache, dizziness, GI bleed, back pain, seizure, CVA, palpatations, mental health, musculoskeletal)? @ -Differential Chest Pain: Stable Angina, Unstable Angina, STEMI, NSTEMI Aortic Dissection, Pneumothorax, Musculoskeletal, Esophageal Spasm GERD, Cholecystitis, Pancreatitis, Zoster, this is not meant to be an all-inclusive list. EKG interpreted by me (3pts min.). @ -As above X-rays interpreted by me (1pt min.). @ -[Chest shows no acute cardiopulmonary process CT interpreted by me (1pt min.). @ -None done U/S interpreted by me (1pt. min.). @ -None done What testing was considered but not performed or refused? (CT, X-rays, U/S, labs)? Why? @ -None What meds were considered but not given or refused? Why? @ -None Did you discuss the management of the patient with other professionals (professionals i.e. ANTONIO Urrutia, ACTUARY MANAGER, lab, RT, psych nurse, neonatal social worker, wedger and gluer, teacher, weapons electrical engineering officer, casework manager)? Give summary @ -No Was smoking cessation discussed for >3mins.? @ -No Was critical care preformed (if so, how long)? @ -No Were there social determinants of health that impacted care today? How? (Homelessness, low income, unemployed, alcoholism, drug addiction, transportation, low edu. Level, literacy, decrease access to med. care, halfway, rehab)? @ -No Was there de-escalation of care discussed even if they declined (Discuss DNR or withdrawal of care, Hospice)? DNR status @ -No What co-morbidities impacted this encounter? (DM, HTN, Smoking, COPD, CAD, Cancer, CVA, ARF, Chemo, Hep., AIDS, mental health diagnosis, sleep apnea, morbid obesity)? @ -[ hypertension, hyperlipidemia Was patient admitted / discharged? Hospital course, mention meds given and route, prescriptions, significant lab abnormalities, going to OR and other pertinent info. @ -Discharge patient presented from PCPs office for hypertension. Blood pressure improved after nitro. Symptoms have resolved including chest pressure. Workup including labs, EKG and chest x-ray shows no acute changes. Given the patient's multiple risk factors I recommend the patient to be admitted for further cardiac workup including echocardiogram, cardiology evaluation possible stress test or heart cath. Patient states he is asymptomatic he does not want to stay in the hospital he understands that he needs to be admitted but states that he will follow-up with his PCP he will be started on his losartan. Again understands the risks of leaving including possible . Undiagnosed new problem with uncertain prognosis? @ -No Drug Therapy requiring intensive monitoring for toxicity (Heparin, Nitro, Insulin, Cardizem)? @ -No Were any procedures done? @ -No Diagnosis/symptom? @ -[Hypertension, chest pain Acute, or Chronic, or Acute on Chronic? @ -Acute Uncomplicated (without systemic symptoms) or Complicated (systemic symptoms)? @ -[complicated Side effects of treatment? @ -[No Exacerbation, Progression, or Severe Exacerbation? @ -No Poses a threat to life or bodily function? How? (Chest pain, [place], MN, pneumonia, PE, COPD, DKA, ARF, appy, cholecystitis, CVA, Diverticulitis, Homicidal, Suicidal, threat to staff... and all critical care pts) @ -[Yes possible ACS Disposition Clinical Impression: Chest pain, Hypertension Disposition: HOME SELF-CARE Condition: Fair Instructions (If sedation given, give patient instructions): Chest Pain (ED) Additional Instructions: Please return to the Emergency Department if symptoms worsen or any other concerns. Prescriptions: Losartan Potassium 100 mg PO DAILY #30 tab Is patient prescribed a controlled substance at d/c from ED?: No Referrals: Xuan Figueroa NPC [STAFF PHYSICIAN] - 1-2 days Time of Disposition: 11:31
[2023-12-19 10:31] LABS: ALT 45 U/L (4-49); AST 31 U/L (17-59); African American GFR (CKD) >90 (>60 ml/min/1.73 sqM); Alkaline Phosphatase 93 U/L (38-126); Anion Gap 11 mmol/L; Blood Urea Nitrogen 19 mg/dL (9-20); Carbon Dioxide 24 mmol/L (22-30); Chloride 103 mmol/L (98-107); Glucose 118 mg/dL (74-99); Magnesium 1.7 mg/dL (1.6-2.3); Non-African American GFR(CKD) >90 (>60 ml/min/1.73 sqM); Potassium 3.3 mmol/L (3.5-5.1); Sodium 138 mmol/L (137-145); Total Bilirubin 1.2 mg/dL (0.2-1.3); Total Protein 8.2 g/dL (6.3-8.2)
--- NOTE | 2023-12-19 10:37 | XR ---
EXAMINATION TYPE: XR chest 2V DATE OF EXAM: 12/19/2023 COMPARISON: 01/16/2020 HISTORY: Shortness of breath TECHNIQUE: Frontal and lateral views of the chest are obtained. FINDINGS: Scattered senescent parenchymal changes noted. Hyperinflation compatible with COPD. No evidence for infiltrate. No evidence for atelectasis. Heart size is stable. Mediastinal structures are stable and grossly unremarkable. No evidence for hilar prominence. Degenerative changes dorsal spine. IMPRESSION: 1. No evidence for acute pulmonary disease.
[2023-12-19 10:39] LABS: NT-Pro-B-Type Natriuretic Pept 319 pg/mL
[2023-12-19 10:42] LABS: INR 0.9 (<1.2); Prothrombin Time 10.2 sec (10.0-12.5)
[2023-12-19] MEDS ORDERED: NITROGLYCERIN OINT 1 INCH/GM PACKET TOPICAL STA (10:43)
[2023-12-19 10:44] VITALS: TEMP 98
[2023-12-19 11:42] VITALS: BP 151/101; PULSE 81
== END 2023-12-19 11:41 | disposition home or self-care (01) ==
LOC: EC 09:52
DX: I10 Essential (primary) hypertension (principal); R07.89 Other chest pain; Z79.899 Other long term (current) drug therapy
CPT/HCPCS: 36415; 71046; 80053; 83735; 83880; 84484; 85025; 85379; 85610; 85730; 93005; 99285

== ENCOUNTER 2025-04-22 15:11 | Inpatient (IN) | payer MEDICAID, OTHER ==
[2025-04-22] MEDS ORDERED: LORazepam 2 MG/ML INJ IM PRN (17:44)
[2025-04-22] MEDS ORDERED: HALOPERIDOL LACTATE 5 MG/ML 1 ML VIAL IM PRN (17:44)
[2025-04-22] MEDS ORDERED: MAGNESIUM HYDROXIDE 2,400 MG/30 ML CUP PO PRN (17:44)
[2025-04-22] MEDS ORDERED: MAG HYDROX/AL HYDROX/SIMETH 355 ML BOTTLE PO PRN (17:44)
[2025-04-22] MEDS: FOLIC ACID 1 MG TAB PO SCH (18:14)
[2025-04-22] MEDS: chlordiazePOXIDE 25 MG CAP PO SCH (18:14)
[2025-04-22] MEDS: THIAMINE 100 MG TAB PO SCH (18:15)
[2025-04-22] MEDS: MULTIVITAMINS, THERA 1 EACH TAB PO SCH (18:15)
[2025-04-22] MEDS: LORazepam 1 MG TAB PO PRN (18:15)
[2025-04-22] MEDS: ACETAMINOPHEN TAB 325 MG TAB PO PRN (19:06)
[2025-04-22] MEDS: traZODone HCL 50 MG TAB PO PRN (22:37)
[2025-04-22] MEDS: LOSARTAN 50 MG TAB PO SCH (23:25)
--- NOTE | 2025-04-22 23:28 | P.CONS ---
History of Present Illness - Reason for Consult Consult date: 04/22/25 Medical management - Chief Complaint Suicidal ideation - History of Present Illness This is a 54-year-old male patient with a past medical history of essential hypertension and history of kidney stone was admitted under psych unit for management of depression and suicidal ideation. Patient reports that he lost his job 6 months ago and is currently homeless. He is under a lot of stress recently and he has been using alcohol to treat his depression . He does report that he wanted to get so drunk and use alcohol to hurt himself a few days ago. He usually drinks 2-3 times per week , 4-6 beers along with liquor . No reports of alcohol withdrawal symptoms including hallucinations or tremors . Does have history of hypertension and his blood pressure is elevated. He usually uses losartan and he is on 50 mg daily. He reported that his PCP recently increased his losartan dose to 100 mg daily . Past medical history : Essential hypertension, history of kidney stone Past surgical history : Right hip surgery, tonsillectomy Social history : Patient is only. Non-smoker. Drinks alcohol every other day 4-6 beers and no illicit drug use. Review of system : Negative for all systems Physical exam : General: nontoxic, no distress, appears at stated age Derm: warm, dry, intact Head: atraumatic, normocephalic, symmetric Eyes: EOMI, anicteric sclera Mouth: no lip lesion, mucus membranes moist Cardiovascular: S1 S2 reg, no murmur, rubs, or gallops Lungs: CTA bilateral, no rales, no accessory muscle use Abdominal: soft, non-tender to palpataion, no appreciable organomegaly Extremities: no gross muscle atrophy, no edema, no contractures Neuro: Alert, Oriented, CNII-XII grossly intact, gait normal Psych: well appearing, appropriate affect Cranial nerve exam : II: Pupils equal and reactive, no RAPD, normal visual field and fundus III, IV, : EOM intact, no gaze preference or deviation V: normal VII: no facial asymmetry VIII: normal hearing to speech Assessment and plan : - Accelerated hypertension : Continue losartan 50 mg daily May add clonidine as needed if his blood pressure remains uncontrolled -Alcohol use disorder : Continue with CIWA protocol Oral Ativan as needed Will order phosphorus and magnesium level Thiamine and folic acid daily Patient is homeless and will need a group social worker and CM CODE STATUS is full code Time spent : 55 min Past Medical History Past Medical History: Hypertension Additional Past Medical History / Comment(s): Kidney stones x2 pt passed on his own, HTN for 1 year-pt did not pursue tx d/t no insurance coverage. History of Any Multi-Drug Resistant Organisms: None Reported Past Surgical History: Orthopedic Surgery, Tonsillectomy Additional Past Surgical History / Comment(s): R knee arthroscopic surgery, right hip replacement Past Anesthesia/Blood Transfusion Reactions: No Reported Reaction Smoking Status: Never smoker Past Alcohol Use History: Heavy Past Drug Use History: None Reported - Past Family History Mother Family Medical History: Cancer Additional Family Medical History / Comment(s): Mother of lung cancer at the age of 68yrs. She was a smoker. Father History Unknown: Yes Family Medical History: Unable to Obtain Additional Family Medical History / Comment(s): Father left when pt was 4 yrs old. Medications and Allergies Home Medications Medication Instructions Recorded Confirmed Type Aspirin 81 mg PO DAILY 30 Days #30 tab 04/15/25 Rx Atorvastatin [Lipitor] 40 mg PO DAILY 30 Days #30 tab 04/15/25 Rx Losartan [Cozaar] 50 mg PO DAILY 30 Days #30 tab 04/15/25 Rx Allergies Allergy/AdvReac Type Severity Reaction Status Date / Time No Known Allergies Allergy Verified 04/14/25 18:01 Physical Exam Vitals: Vital Signs Temp Pulse Resp BP Pulse Ox 04/22/25 19:42 91 145/97 04/22/25 17:15 98.5 F 85 20 154/100 97 Intake and Output 04/22/25 04/22/25 04/23/25 14:59 22:59 06:59 Other: Weight 83.2 kg
[2025-04-23 08:33] LABS: Basophils # (A) 0.03 10*3/uL (0.00-0.10); Basophils % (A) 0.7 %; Eosinophils # (A) 0.08 10*3/uL (0.04-0.35); Eosinophils % (A) 1.9 %; HCT 35.5 % (39.6-50.0); Lymphocytes # (A) 1.73 10*3/uL (0.90-5.00); Lymphocytes % (A) 40.5 %; MCH 33.6 pg (27.0-32.0); MCHC 34.9 g/dL (32.0-37.0); MCV 96.2 fL (80.0-97.0); Mean Platelet Volume 10.4 fL (9.5-12.2); Monocytes # (A) 0.39 10*3/uL (0.20-1.00); Monocytes % (A) 9.1 %; Neutrophils # (A) 2.03 10*3/uL (1.80-7.70); Neutrophils % (A) 47.6 %; Platelet Count 232 10*3/uL (140-440); RBC 3.69 10*6/uL (4.40-5.60); RDW 13.8 % (11.5-14.5); WBC 4.27 10*3/uL (4.50-10.00)
[2025-04-23 08:34] LABS: HGB 12.4 g/dL (13.0-17.0)
[2025-04-23 08:41] LABS: ALT 51 U/L (4-49); AST 44 U/L (17-59); African American GFR (CKD) >90 (>60 ml/min/1.73 sqM); Albumin 3.8 g/dL (3.5-5.0); Alkaline Phosphatase 60 U/L (38-126); Anion Gap 4 mmol/L; Blood Urea Nitrogen 11 mg/dL (9-20); Calcium 9.9 mg/dL (8.4-10.2); Carbon Dioxide 31 mmol/L (22-30); Chloride 105 mmol/L (98-107); Glucose 92 mg/dL (74-99); Non-African American GFR(CKD) >90 (>60 ml/min/1.73 sqM); Potassium 3.9 mmol/L (3.5-5.1); Sodium 140 mmol/L (137-145); Total Bilirubin 1.1 mg/dL (0.2-1.3); Total Protein 6.1 g/dL (6.3-8.2)
[2025-04-23] MEDS: NICOTINE 14MG/24HR PATCH TRANSDERM SCH (08:46)
[2025-04-23 09:14] LABS: Appearance,Urine Clear (Clear); Bilirubin,Urine Negative (Negative); Blood,Urine Negative (Negative); Color,Urine Yellow; Glucose,Urine (UA) Negative (Negative); Ketones,Urine Negative (Negative); Leukocyte Esterase,Urine Negative (Negative); Nitrite,Urine Negative (Negative); PH, Urine 6.5 (5.0-8.0); Protein,Urine Negative (Negative); Specific Gravity,Urine 1.018 (1.001-1.035); Urobilinogen,Urine <2.0 mg/dL (<2.0)
[2025-04-23] MEDS: SERTRALINE 50 MG TAB PO SCH (12:55)
[2025-04-23] MEDS: IBUPROFEN 600 MG TAB PO PRN (14:22)
--- NOTE | 2025-04-23 14:43 | P.HP ---
Psychiatric H&P - . H&P Date: 04/23/25 History & Physical: Allergies Allergy/AdvReac Type Severity Reaction Status Date / Time No Known Allergies Allergy Verified 04/14/25 18:01 Vital Signs Temp 99.0 F 04/23/25 09:05 Pulse 87 04/23/25 09:05 Resp 16 04/23/25 09:05 BP 122/84 04/23/25 09:05 Pulse Ox 99 04/23/25 09:05 FiO2 Intake & Output 04/22/25 04/23/25 04/23/25 18:59 06:59 18:59 Weight 83.2 kg Laboratory Last Values WBC 4.27 10*3/uL (4.50-10.00) L 04/23/25 07:41 RBC 3.69 10*6/uL (4.40-5.60) L 04/23/25 07:41 Hgb 12.4 g/dL (13.0-17.0) L D 04/23/25 07:41 Hct 35.5 % (39.6-50.0) L 04/23/25 07:41 MCV 96.2 fL (80.0-97.0) 04/23/25 07:41 MCH 33.6 pg (27.0-32.0) H 04/23/25 07:41 MCHC 34.9 g/dL (32.0-37.0) 04/23/25 07:41 Plt Count 232 10*3/uL (140-440) 04/23/25 07:41 MPV 10.4 fL (9.5-12.2) 04/23/25 07:41 Immature Gran % (Auto) 0.2 % 04/23/25 07:41 Neutrophils % 47.6 % 04/23/25 07:41 Lymphocytes % 40.5 % 04/23/25 07:41 Monocytes % 9.1 % 04/23/25 07:41 Eosinophils % 1.9 % 04/23/25 07:41 Basophils % 0.7 % 04/23/25 07:41 Immature Gran # 0.01 10*3/uL (0.00-0.04) 04/23/25 07:41 Neutrophils # 2.03 10*3/uL (1.80-7.70) 04/23/25 07:41 Lymphocytes # 1.73 10*3/uL (0.90-5.00) 04/23/25 07:41 Monocytes # 0.39 10*3/uL (0.20-1.00) 04/23/25 07:41 Eosinophils # 0.08 10*3/uL (0.04-0.35) 04/23/25 07:41 Basophils # 0.03 10*3/uL (0.00-0.10) 04/23/25 07:41 Sodium 140 mmol/L (137-145) 04/23/25 07:41 Potassium 3.9 mmol/L (3.5-5.1) 04/23/25 07:41 Chloride 105 mmol/L (98-107) 04/23/25 07:41 Carbon Dioxide 31 mmol/L (22-30) H 04/23/25 07:41 Anion Gap 4 mmol/L 04/23/25 07:41 BUN 11 mg/dL (9-20) 04/23/25 07:41 Creatinine 0.80 mg/dL (0.66-1.25) 04/23/25 07:41 Est GFR (CKD-EPI)AfAm >90 (>60 ml/min/1.73 sqM) 04/23/25 07:41 Est GFR (CKD-EPI)NonAf >90 (>60 ml/min/1.73 sqM) 04/23/25 07:41 Glucose 92 mg/dL (74-99) 04/23/25 07:[address] Glu mg/dL 85 mg/dL 04/23/25 07:41 Hemoglobin A1c 4.6 % (<=6.0) 04/23/25 07:41 Calcium 9.9 mg/dL (8.4-10.2) 04/23/25 07:41 Total Bilirubin 1.1 mg/dL (0.2-1.3) 04/23/25 07:41 AST 44 U/L (17-59) 04/23/25 07:41 ALT 51 U/L (4-49) H 04/23/25 07:41 Alkaline Phosphatase 60 U/L (38-126) 04/23/25 07:41 Total Protein 6.1 g/dL (6.3-8.2) L 04/23/25 07:41 Albumin 3.8 g/dL (3.5-5.0) 04/23/25 07:41 TSH 2.950 mIU/L (0.465-4.680) 04/23/25 07:41 Urine Color Yellow 04/23/25 09:10 Urine Appearance Clear (Clear) 04/23/25 09:10 Urine pH 6.5 (5.0-8.0) 04/23/25 09:10 Ur Specific [place] 1.018 (1.001-1.035) 04/23/25 09:10 Urine Protein Negative (Negative) 04/23/25 09:10 Urine Glucose (UA) Negative (Negative) 04/23/25 09:10 Urine Ketones Negative (Negative) 04/23/25 09:10 Urine Blood Negative (Negative) 04/23/25 09:10 Urine Nitrite Negative (Negative) 04/23/25 09:10 Urine Bilirubin Negative (Negative) 04/23/25 09:10 Urine Urobilinogen <2.0 mg/dL (<2.0) 04/23/25 09:10 Ur Leukocyte Esterase Negative (Negative) 04/23/25 09:10 04/23/25 14:34 IDENTIFYING DATA: Patient is a 54-year-old male, homeless, employed CHIEF COMPLAINT: SI with a plan HPI: Patient presented to the hospital with alcohol intoxication and suicidal ideations. EPS notes states, "pt is transfer from [facility]. pt had apparently arrived at ER after being brought in by police for reporting SI. pt was also intoxicated with serum ETOH of 411. pt had denied plan initially, bu t then reported plan to hang himself. pt reports that his mother recently and then his sister not long after. pt is also homeless and living in a friend's garage on a bed in the corner. pt denies HI and hallucinations. No delusional thought content noted. pt did have potassium 3.0 upon arrival to [facility]; potassium replaced and repeat level 3.9." Patient seen and evaluated on the unit and was agreeable with speaking to narrative writer in office. 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 Shortly after that, my mom and then a few weeks later, I lost my sister. I started drinking to cope with the loss and the stress. I lost my house so now I am living in my buddys garage and it is terrible. His only lets me in the house once every 5 days to shower. Its not safe there. They let bad people in and they do things I dont want to be around. One night, they locked the garage and I had to sleep in a young potty for 3 days. Patient states everything came to ahead yesterday when he drank 2 pints of hard liquor with the development of suicidal ideations that led him to contact the police. Patient reports predominate depressive symptoms including low mood, poor sleep, anhedonia, worthlessness, low energy, poor appetite, and psychomotor slowing over the last few months. Patient denies any suicidal or homicidal ideations intent or plan. At this time patient denies any auditory or visual hallucinations. Patient denies any flight of ideas racing thoughts and increased in goal directed behavior. Patient admits to using alcohol 2-3 times per week, denying any other substances. He does report a remote history of DUI 25 years ago, denying any past rehab but did state he has gone to previously. He is not interested in rehab at this time, stating that he can easily quit alcohol when needed. PAST PSYCHIATRIC HISTORY: Patient has no past psych history. Patient denies being on any psychiatric medications. Patient denies any previous psychiatric hospitalizations. Patient denies any psychiatric outpatient follow-up. Patient denies any history of suicide attempts in the past. PMH: as per ER note ALLERGIES: as per EMR SUBSTANCE USE HISTORY: As per HPI FAMILY PSYCHIATRIC/SUBSTANCE USE HISTORY: Patient states his sister uses substances SOCIAL HISTORY: Patient is single, has no children and is homeless. He works part-time at a [employer], completed schooling up to the 11th grade. MENTAL STATUS EXAM: General Appearance: Patient appears to be stated age is alert, directable, and attempts to cooperate. Patient appears to have fair hygiene and grooming. Behavior: Patient is seated without any agitated behavior. Speech: Patient's speech is fluent and nonpressured. Mood/Affect: Patient reports their mood is depressed, affect is congruent and constricted. Suicidality/Homicidality: Patient denies having any homicidal ideation intent or plan. Denies any suicidal ideations intent or plan Perceptions: Patient denies any visual hallucinations and denies any auditory hallucinations Though content/process: There is no evidence of any delusional thought content and thought process is linear and logical. Memory and concentration: AOX3, grossly intact for the purposes of this session. Can spell "WORLD" backwards Judgment and insight: Poor STRENGTHS/WEAKNESSES: strength is that patient is resilient. Weakness is that patient has poor judgment, homeless, abuse alcohol and is impulsive INTELLECT: Average IMPRESSIONS: Major depressive disorder, recurrent Alcohol use disorder, moderate PLAN: -Patient is admitted under voluntary status to [facility] for stabilization of psychiatric symptoms and safety. Patient has signed adult voluntary form and and is placed in patient's chart. -Medications : Start Zoloft 50 mg daily for depression, trazodone 100 mg at bedtime for insomnia - Ativan and Haldol PRN for agitation/aggression -Started thiamine, MVM for etoh use -CIWA protocol with Ativan PRN for ETOH withdrawal. -Patient was counselled on substance abuse and desired to cut back on use-Will offer patient subtance use rehab however he declined at this time -Patient was informed of the risks, benefits and side effects of the medication and patient verbally consented to taking the medications. Patient signed med consent form and was placed in chart. Patient offered and accepted patient education sheet for psychotropic medications. -Internal Medicine consult to perform medical evaluation and physical. -NRT -not needed as patient does not smoke -SW on board for discharge planning. Encourage patient to participate in groups to work on coping skills.
[2025-04-23 15:53] LABS: Chol/HDL Ratio 1.54 Ratio
[2025-04-23 15:55] LABS: LDL Cholesterol,Calculated 63.4 mg/dL (0.0-131.0)
[2025-04-23] MEDS: traZODone HCL 100 MG TAB PO SCH (20:38)
[2025-04-23] MEDS ORDERED: traZODone HCL 50 MG TAB PO SCH (21:00)
--- NOTE | 2025-04-24 13:13 | P.PN ---
Progress Note - Text Progress Note Date: 04/24/25 Interval History: Patient was seen wandering the hallways and was directable and agreeable to sp pancho with tech writer in the office. He appeared bright in affect, stated feeling better today. He reports sleeping and eating better in addition to improvements in his anxiety. He has been socializing on the unit, attending some groups. At this time patient denies any suicidal or homicidal ideations, intent or plan. Patient denies any auditory, visual hallucinations and denies any paranoia or delusions. Patient denies any side effects from the medications and has been compliant with meds. Mental Status Exam: General Appearance: Patient appears to be stated age is alert, directable, and cooperative. He wears glasses and has fair grooming and hygiene Behavior: Patient is calmly seated without any agitated behavior. Speech: Patient's speech is fluent and nonpressured. Mood/Affect: Mood is improving mildly, affect is congruent and more bright. Suicidality/Homicidality: Patient denies having any suicidal or homicidal ideation intent or plan. Perceptions: Patient denies any visual hallucinations and denies any auditory hallucinations Though content/process: There is no evidence of any delusional thought content and thought process is linear and goal-directed. Memory and concentration: AOX3, grossly intact for the purposes of this session Judgment and insight: Improving mildly Assessment Major depressive disorder, recurrent Alcohol use disorder, moderate Plan: -Patient continues to meet criteria for inpatient psychiatric admission for symptom stabilization and safety. Patient has signed adult voluntary form and medication consent and was placed in patient's chart. -Medications: Continue Zoloft 50 mg daily for depression, trazodone 100 mg at bedtime for insomnia -When necessary Ativan and Haldol for agitation/aggression. -Labs: Reviewed, A1c/TSH WNL, lipid panel revealed mild elevations in cholesterol and HDL -CIWA protocol with Ativan PRN for ETOH withdrawal. -SW on board for discharge planning. Encouraged the patient to participate in milieu. Anticipate discharge early next week, likely to group home as patient is homeless
[2025-04-24] MEDS: LORazepam 1 MG TAB PO PRN (15:41)
[2025-04-25] MEDS: LORazepam 1 MG TAB PO PRN (08:38)
[2025-04-25] MEDS: SERTRALINE 100 MG TAB PO SCH (10:37)
--- NOTE | 2025-04-25 12:36 | P.PN ---
Progress Note - Text Progress Note Date: 04/25/25 Interval History: Patient was seen in group and was directable and agreeable to speak with video games storywriter in the office. He continues to report stability in terms of depressive symptoms. He has been active in groups, socializing with bright in affect. He expresses a desire to live. He does admit that the environment is triggering at times however as needed Ativan is helpful for this. He reports good sleep and appetite. At this time patient denies any suicidal or homicidal ideations, intent or plan. Patient denies any auditory, visual hallucinations and denies any paranoia or delusions. Patient denies any side effects from the medications and has been compliant with meds. Mental Status Exam: General Appearance: Patient appears to be stated age is alert, directable, and cooperative. He wears glasses, fair grooming and hygiene Behavior: Patient is calmly seated without any agitated behavior. Speech: Patient's speech is fluent and nonpressured. Mood/Affect: Mood is improving mildly, affect is congruent and bright, reactive. Suicidality/Homicidality: Patient denies having any suicidal or homicidal ideation intent or plan. Perceptions: Patient denies any visual hallucinations and denies any auditory hallucinations Though content/process: There is no evidence of any delusional thought content and thought process is linear and goal-directed. Memory and concentration: AOX3, grossly intact for the purposes of this session Judgment and insight: Improving mildly Assessment Major depressive disorder, recurrent Alcohol use disorder, moderate Plan: -Patient continues to meet criteria for inpatient psychiatric admission for symptom stabilization and safety. Patient has signed adult voluntary form and medication consent and was placed in patient's chart. -Medications: Increase Zoloft to 100 mg daily today for depression, continue trazodone 100 mg at bedtime for insomnia -When necessary Ativan and Haldol for agitation/aggression. -Labs: Reviewed -CIWA protocol with Ativan PRN for ETOH withdrawal. -SW on board for discharge planning. Encouraged the patient to participate in milieu. Anticipate discharge on Monday to [facility]
[2025-04-26] MEDS: hydrOXYzine pamoate 25 MG CAP PO PRN (13:34)
--- NOTE | 2025-04-26 13:56 | P.PN ---
Subjective Progress Note Date: 04/26/25 Principal diagnosis: Major depression recurrent Patient was directable and agreeable to speak with automobile service writer in the office. He continues to report stability in terms of depressive symptoms. He has been active in groups, socializing with bright affect. He expresses a desire to li ve. He does admit that the environment is triggering but the ativan does not give much relief. He reports good sleep and appetite. At this time patient denies any suicidal or homicidal ideations, intent or plan. Patient denies any auditory, visual hallucinations and denies any paranoia or delusions. Patient denies any side effects from the medications and has been compliant with meds. He was told that the medicine could bother his stomach but has had no problems. Mental Status Exam: General Appearance: Patient appears to be stated age is alert, directable, and cooperative. He wears glasses, fair grooming and hygiene Behavior: Patient is calmly seated without any agitated behavior. Speech: Patient's speech is fluent and nonpressured. Mood/Affect: Mood is improving mildly, affect is congruent and bright, reactive. Suicidality/Homicidality: Patient denies having any suicidal or homicidal ideation intent or plan. Perceptions: Patient denies any visual hallucinations and denies any auditory hallucinations Though content/process: There is no evidence of any delusional thought content and thought process is linear and goal-directed. Memory and concentration: AOX3, grossly intact for the purposes of this session Judgment and insight: Improving mildly Assessment Major depressive disorder, recurrent Alcohol use disorder, moderate Plan: -Patient continues to meet criteria for inpatient psychiatric admission for symptom stabilization and safety. Patient has signed adult voluntary form and medication consent and was placed in patient's chart. -Medications: Increase Zoloft to 150 mg daily today for depression, continue trazodone 100 mg at bedtime for insomnia -When necessary Vistaril 50mg and Haldol for agitation/aggression. -Labs: Reviewed -WA protocol with Ativan PRN for ETOH withdrawal. -SW on board for discharge planning. Encouraged the patient to participate in [place]. Anticipate discharge on Monday to [facility] Objective - Vital Signs Vital signs: Vital Signs Temp 98.0 F 04/26/25 08:31 Pulse 62 04/26/25 08:31 Resp 18 04/26/25 08:31 BP 116/77 04/26/25 08:31 Pulse Ox 100 04/26/25 08:31 FiO2 - Labs CBC & Chem 7: 04/23/25 07:41 04/23/25 07:41
--- NOTE | 2025-04-26 19:01 | XR ---
EXAMINATION TYPE: XR foot limited LT DATE OF EXAM: 04/26/2025 5:38 PM CLINICAL INDICATION:Male, 54 years old with history of left great toe swollen after hitting it on a c hair; PHH, pain COMPARISON: Foot x-ray 11/09/2021 TECHNIQUE: XR foot limited LT examined in the AP and lateral projections. FINDINGS: There is a linear punctate radiodensity seen in the lateral aspect of the distal phalanx of the great toe. There is mild soft tissue swelling of the great toe. The remainder of the osseous structures ar e intact. Calcaneal plantar spurring is seen. IMPRESSION: Linear radiodense focus seen adjacent to the distal phalanx of the great toe may represent a small ch ip fracture versus sclerotic focus within the overlying nail. There is mild soft tissue swelling of t he great toe. No other acute osseous abnormality. [facility], , 04/26/2025 6:59 PM
[2025-04-27] MEDS: SERTRALINE 50 MG TAB PO SCH (08:11)
--- NOTE | 2025-04-27 11:01 | P.PN ---
Subjective Progress Note Date: 04/27/25 Principal diagnosis: Major depression recurrent Patient was directable and agreeable to speak with lyric writer in the office. He continues to report stability in terms of depressive symptoms. He has been active in groups, socializing with bright affect. He expresses a desire to li ve. He does admit that the environment is triggering but the ativan does not give much relief. He reports good sleep and appetite. At this time patient denies any suicidal or homicidal ideations, intent or plan. Patient denies any auditory, visual hallucinations and denies any paranoia or delusions. Patient denies any side effects from the medications and has been compliant with meds. He was told that the medicine could bother his stomach but has had no problems. He has tolerated the increase in Zoloft his anxiety is better he is still ruminating around around on the past in the future and elsewhere but realizes this is unhealthy and he had a good night sleep. He really likes the trazodone seems to work well in the sleep Mental Status Exam: General Appearance: Patient appears to be stated age is alert, directable, and cooperative. He wears glasses, fair grooming and hygiene Behavior: Patient is calmly seated without any agitated behavior. Speech: Patient's speech is fluent and nonpressured. Mood/Affect: Mood is improving mildly, affect is congruent and bright, reactive. Suicidality/Homicidality: Patient denies having any suicidal or homicidal ideation intent or plan. Perceptions: Patient denies any visual hallucinations and denies any auditory hallucinations Though content/process: There is no evidence of any delusional thought content and thought process is linear and goal-directed. Memory and concentration: AOX3, grossly intact for the purposes of this session Judgment and insight: Improving mildly Assessment Major depressive disorder, recurrent Alcohol use disorder, moderate Plan: -Patient continues to meet criteria for inpatient psychiatric admission for symptom stabilization and safety. Patient has signed adult voluntary form and medication consent and was placed in patient's chart. -Medications: Increase Zoloft to 150 mg daily today for depression, continue trazodone 100 mg at bedtime for insomnia -When necessary Vistaril 50mg and Haldol for agitation/aggression. -Labs: Reviewed -CIWA protocol with Ativan PRN for ETOH withdrawal. -SW on board for discharge planning. Encouraged the patient to participate in milieu. Anticipate discharge on [facility] Objective - Vital Signs Vital signs: Vital Signs Temp 98.3 F 04/27/25 08:48 Pulse 65 04/27/25 08:48 Resp 20 04/27/25 08:48 BP 115/74 04/27/25 08:48 Pulse Ox 100 04/27/25 08:48 FiO2 - Labs CBC & Chem 7: 04/23/25 07:41 04/23/25 07:41
[2025-04-28] MEDS: busPIRone HCl 10 MG TAB PO SCH (10:29)
--- NOTE | 2025-04-28 12:13 | P.PN ---
Progress Note - Text Progress Note Date: 04/28/25 Interval History: Patient was seen laying in bed and was directable and agreeable to speak with caption writer in the office. Patient appeared tearful, reporting high anxiety related to the upcoming discharge. He has not utilized any coping skills other than isolation and square breathing was discussed with patient in addition to being provided a list of 99 coping skills that he can use when feeling anxious. He has taken as needed Ativan which is effective. He states anxiety is higher than depression, still denying any suicidal ideations today. He feels as though if he were to discharge today he will just keep walking, a lot of negative thoughts surfacing. At this time patient denies any suicidal or homicidal ideations, intent or plan. Patient denies any auditory, visual hallucinations and denies any paranoia or delusions. Patient denies any side effects from the medications and has been compliant with meds. Mental Status Exam: General Appearance: Patient appears to be stated age is alert, directable, and cooperative. He wears glasses Behavior: Patient is calmly seated without any agitated behavior. He is tearful Speech: Patient's speech is fluent and nonpressured. Mood/Affect: Mood is "anxious", affect is congruent and constricted. Suicidality/Homicidality: Patient denies having any suicidal or homicidal ideation intent or plan. Perceptions: Patient denies any visual hallucinations and denies any auditory hallucinations Though content/process: There is no evidence of any delusional thought content and thought process is linear and goal-directed. Memory and concentration: AOX3, grossly intact for the purposes of this session Judgment and insight: Improving mildly Assessment Major depressive disorder, recurrent Alcohol use disorder, moderate Plan: -Patient continues to meet criteria for inpatient psychiatric admission for symptom stabilization and safety. Patient has signed adult voluntary form and medication consent and was placed in patient's chart. -Medications: Start BuSpar 10 mg twice daily for anxiety, continue Zoloft 150 mg daily for depression, trazodone 100 mg at bedtime for insomnia -When necessary Ativan and Haldol for agitation/aggression. -Labs: Reviewed -CIWA protocol with Ativan PRN for ETOH withdrawal. -SW on board for discharge planning. Encouraged the patient to participate in milieu. Anticipate discharge tomorrow to residential
[2025-04-28] MEDS: NICOTINE GUM (POLACRILEX) 2 MG GUM BUCCAL PRN (16:40)
[2025-04-29] MEDS: SERTRALINE 50 MG TAB PO ONE (10:24)
[2025-04-29] MEDS: busPIRone HCl 5 MG TAB PO STA (10:24)
--- NOTE | 2025-04-29 12:16 | P.PN ---
Progress Note - Text Progress Note Date: 04/29/25 Interval History: Patient was seen wandering the hallways and was directable and agreeable to sp pancho with medical underwriter in the office. Patient appeared anxious, states feeling overwhelmed due to being discharged soon. Patient expresses hopelessness, states "I just want to ended" and reporting the surfacing of suicidal ideations. He is able to keep himself safe while in the hospital however given the overwhelming feelings he feels as though he will act on these thoughts if discharged. Ongoing stressors include homelessness. Patient was encouraged to implement the coping skills that were taught yesterday. Patient states he will contact his sisters who live in the area to see if they are able to help out and if not he will reach out to her friend today. At this time patient denies any homicidal ideations, intent or plan. Patient denies any auditory, visual hallucinations and denies any paranoia or delusions. Patient denies any side effects from the medications and has been compliant with meds. Mental Status Exam: General Appearance: Patient appears to be stated age is alert, directable, and cooperative. He is wearing glasses Behavior: Patient is calmly seated without any agitated behavior. Speech: Patient's speech is fluent and nonpressured. Mood/Affect: Mood is "anxious", affect is congruent and constricted. Suicidality/Homicidality: Patient denies having any homicidal ideation intent or plan. Patient reports suicidal ideations Perceptions: Patient denies any visual hallucinations and denies any auditory hallucinations Though content/process: There is no evidence of any delusional thought content and thought process is linear and goal-directed. Memory and concentration: AOX3, grossly intact for the purposes of this session Judgment and insight: Improving mildly Assessment Major depressive disorder, recurrent Alcohol use disorder, moderate Plan: -Patient continues to meet criteria for inpatient psychiatric admission for symptom stabilization and safety. Patient has signed adult voluntary form and medication consent and was placed in patient's chart. -Medications: Increase Zoloft to 200 mg daily for depression/anxiety, increase BuSpar to 15 mg twice daily for anxiety, continue trazodone 100 mg at bedtime for insomnia -When necessary Ativan and Haldol for agitation/aggression. -Labs: Reviewed -WA protocol with Ativan PRN for ETOH withdrawal. -SW on board for discharge planning. Encouraged the patient to participate in milieu. Anticipate discharge tomorrow to retirement versus friends/family, patient will be provided his phone today to obtain the numbers to make these calls in prep for tomorrow and patient acknowledged
[2025-04-29] MEDS: busPIRone HCl 10 MG TAB PO SCH (20:37)
[2025-04-29 21:58] VITALS: RESP 16
[2025-04-29] MEDS: haloperidoL 5 MG TAB PO PRN (23:51)
[2025-04-30] MEDS: SERTRALINE 100 MG TAB PO SCH (08:37)
[2025-04-30 10:04] VITALS: BP 90/60; PULSE 69; TEMP 97.6
--- NOTE | 2025-04-30 12:59 | P.DS ---
Providers Date of admission: 04/22/25 17:12 Expected date of discharge: 04/30/25 Attending physician: Emeli Morales MD Consults: 04/22/25 17:44 Consult Physician Routine Consulting Provider: Donna Physician Consult Reason/Comments: H&P and medical Do you want consulting provider notified?: Yes Primary care physician: Xuan Pan - Discharge Diagnosis(es) (1) Major depressive disorder, recurrent Current Visit: Yes Status: Acute Priority: High (2) Alcohol use disorder, moderate, dependence Current Visit: Yes Status: Acute Priority: Medium Hospital Course: Admission HPI: Admission note was completed by com writer "Patient presented to the hospital with alcohol intoxication and suicidal ideations. EPS notes states, "pt is transfer from [facility]. pt had apparently arrived at ER after being brought in by police for reporting SI. pt was also intoxicated with serum ETOH of 411. pt had denied plan initially, but then reported plan to hang himself. pt reports that his mother recently and then his sister not long after. pt is also homeless and living in a friend's garage on a bed in the corner. pt denies HI and hallucinations. No delusional thought content noted. pt did have potassium 3.0 upon arrival to [facility]; potassium replaced and repeat level 3.9." Patient seen and evaluated on the unit and was agreeable with ritesh ricketts to com writer in office. 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 Shortly after that, my mom and then a few weeks later, I lost my sister. I started drinking to cope with the loss and the stress. I lost my house so now I am living in my [employer] garage and it is terrible. His only lets me in the house once every 5 days to shower. Its not safe there. They let bad people in and they do things I dont want to be around. One night, they locked the garage and I had to sleep in a young potty for 3 days. Patient states everything came to ahead yesterday when he drank 2 pints of hard liquor with the development of suicidal ideations that led him to contact the police. Patient reports predominate depressive symptoms including low mood, poor sleep, anhedonia, worthlessness, low energy, poor appetite, and psychomotor slowing over the last few months. Patient denies any suicidal or homicidal ideations intent or plan. At this time patient denies any auditory or visual hallucinations. Patient denies any flight of ideas racing thoughts and increased in goal directed behavior. Patient admits to using alcohol 2-3 times per week, denying any other substances. He does report a remote history of DUI 25 years ago, denying any past rehab but did state he has gone to previously. He is not interested in rehab at this time, stating that he can easily quit alcohol when needed." Hospital course: Upon admission to the unit patient was directable and agreeable to commence treatment and signed adult voluntary form.. Patient got along well with other patients on the unit and followed unit protocol. Patient was compliant with the medications and denied any side effects throughout hospital course. Patient was started on Zoloft and this was increased to 200 mg daily for depression/anxiety, BuSpar increased to 15 mg twice daily for anxiety, trazodone increased to 100 mg at bedtime for insomnia. Patient spoke of his stressors and engaged in therapy both group and individual. Patient was also seen by medical team for history and physical exam. Throughout the course of the hospitalization patient gradually improved with regards to mood, anxiety, sleep and returned back to their baseline level of functioning. On the day of discharge patient denied any suicidal or homicidal ideations intent or plan denied any auditory or visual hallucinations. The patient denied any access to guns or weapons. Patient denied any paranoia and did not endorse any delusions. Patient does have a significant history of substance abuse and was counseled on abstaining from all substances including alcohol and marijuana. Patient was offered however declined inpatient substance-abuse rehab. Patient was also counseled on the medications and need for regular compliance and was encouraged to follow-up with their outpatient appointment for mental health and also for primary care. Patient to be discharged to friend's house however was also given the information [facility] the area given his homelessness. He will follow-up with [facility] Mental status exam: General Appearance: Patient appears to be stated age is alert, pleasant, and cooperative. Patient is in no acute distress and has improved hygiene and grooming Behavior: Patient is calmly seated without any agitated behavior. Speech: Patient's speech is fluent and nonpressured. Mood/Affect: Patient reports their mood is "better", affect is congruent and euthymic. Suicidality/Homicidality: Patient denies having any suicidal or homicidal ideation intent or plan. Perceptions: Patient denies any auditory or visual hallucinations. Though content/process: There is no evidence of any delusional thought content and thought process is linear and goal-directed. More future oriented Memory and concentration: AOX3, grossly intact for the purposes of this session. Can spell "WORLD" backwards correctly. Judgment and insight: Fair Impression: Major depressive disorder, recurrent Alcohol use disorder, moderate Plan: -Continue with discharge today as patient has improved and stabilized psychiatrically and is not currently an imminent threat to themself and/or others. -Continue medications: Zoloft 200 mg daily, BuSpar 15 mg twice daily, trazodone 100 mg at bedtime -Patient was counseled on the need for medication compliance and appropriate follow-up at mental health and also primary care for medical issues. Patient verbalized understanding and agreed. -Social work to help coordinate patients discharge today. also to ensure safe home environment that guns/weapons are either removed from the home or locked away. Social work also to arrange for patients follow up appointments with [facility] for psychiatric care along with follow up with primary care provider. -Patient counseled on abstaining from recreational drugs and marijuana and alcohol. Was informed/educated on the adverse effects on their physical and mental health. Patient verbally agreed and understood. Patient was offered substance abuse treatment however declined at this time. -Patient was instructed to return to the hospital or seek immediate medical care if their psychiatric or medical symptoms do worsen or reoccur. Abnormal Labs 04/23/25 04/23/25 07:41 07:41 WBC 4.27 L RBC 3.69 L Hgb 12.4 L D Hct 35.5 L MCH 33.6 H Carbon Dioxide 31 H ALT 51 H Total Protein 6.1 L Cholesterol 217.00 H HDL Cholesterol 141.00 H Allergies Allergy/AdvReac Type Severity Reaction Status Date / Time No Known Allergies Allergy Verified 04/14/25 18:01 Vital Signs Temp 97.6 F 04/30/25 10:03 Pulse 69 04/30/25 10:03 Resp 16 04/30/25 10:03 BP 90/60 04/30/25 10:03 Pulse Ox 97 04/30/25 10:03 FiO2 Patient Condition at Discharge: Stable Plan - Discharge Summary Discharge Rx Participant: Yes New Discharge Prescriptions: New busPIRone HCl [Buspar] 15 mg PO BID 30 Days #90 tab Losartan [Cozaar] 50 mg PO DAILY 30 Days #30 tab Folic Acid 1 mg PO DAILY 30 Days #30 tab Nicotine 14Mg/24Hr Patch [Habitrol] 1 patch TRANSDERM DAILY patch hydrOXYzine pamoate [Vistaril] 50 mg PO Q6H PRN 30 Days #60 cap PRN Reason: Anxiety Thiamine [Vitamin B-1] 100 mg PO DAILY 30 Days #30 tab traZODone HCL [Desyrel] 100 mg PO HS 30 Days #30 tab Multivitamins, Thera [Multivitamin (formulary)] 1 each PO DAILY 30 Days #30 tab Nicotine Gum (Polacrilex) [Nicorette] 2 mg BUCCAL Q4HR PRN pieceofgum PRN Reason: Nicotine Cravings Sertraline [Zoloft] 200 mg PO DAILY 30 Days #60 tab Continue Losartan [Cozaar] 50 mg PO DAILY 30 Days #30 tab Discontinued Atorvastatin [Lipitor] 40 mg PO DAILY 30 Days #30 tab Aspirin 81 mg PO DAILY 30 Days #30 tab Discharge Medication List Losartan [Cozaar] 50 mg PO DAILY 30 Days #30 tab 04/15/25 [Rx] Folic Acid 1 mg PO DAILY 30 Days #30 tab 04/30/25 [Rx] Losartan [Cozaar] 50 mg PO DAILY 30 Days #30 tab 04/30/25 [Rx] Multivitamins, Thera [Multivitamin (formulary)] 1 each PO DAILY 30 Days #30 tab 04/30/25 [Rx] Nicotine 14Mg/24Hr Patch [Habitrol] 1 patch TRANSDERM DAILY patch 04/30/25 [Rx] Nicotine Gum (Polacrilex) [Nicorette] 2 mg BUCCAL Q4HR PRN pieceofgum 04/30/25 [Rx] Sertraline [Zoloft] 200 mg PO DAILY 30 Days #60 tab 04/30/25 [Rx] Thiamine [Vitamin B-1] 100 mg PO DAILY 30 Days #30 tab 04/30/25 [Rx] busPIRone HCl [Buspar] 15 mg PO BID 30 Days #90 tab 04/30/25 [Rx] hydrOXYzine pamoate [Vistaril] 50 mg PO Q6H PRN 30 Days #60 cap 04/30/25 [Rx] traZODone HCL [Desyrel] 100 mg PO HS 30 Days #30 tab 04/30/25 [Rx] Follow up Appointment(s)/Referral(s): [place] [facility] [Outside] - 05/01/25 3:00 pm (with Al[facility]) Xuan Pan MD [Primary Care Provider] - 1 Week Patient Instructions/Handouts: Depression (DC), Abuse of Alcohol (DC) Activity/Diet/Wound Care/Special Instructions: Avoid the use of street drugs and alcohol. Take all medications as prescribed. When you are in need of refills on your medications, please contact your medical provider and/or outpatient psychiatrist/provider to have this done. Please go to your scheduled outpatient appointment for aftercare treatment. If symptoms return or become worse, call the crisis line at and/or go to the nearest emergency room for evaluation. National Suicide Hotline [address] [facility] confidentiality statement: "The information contained in this communication, including attachments, is confidential, may be privileged, and is intended only for the use of the named recipient(s). Unauthorized use, disclosure, forwarding or copying is strictly prohibited and may be unlawful. If you have received this communication in error, please notify me IMMEDIATELY at the phone number or pager listed above. Discharge Disposition: HOME SELF-CARE
== END 2025-04-30 13:15 | disposition home or self-care (01) | DRG 751 ==
LOC: 3MHU 17:12
PROVIDERS: ADMIT Psychiatry & Neurology Psychiatry; ATTEND Psychiatry & Neurology Psychiatry
DX: F33.9 Major depressive disorder, recurrent, unspecified (principal); F10.20 Alcohol dependence, uncomplicated; F41.9 Anxiety disorder, unspecified; G47.00 Insomnia, unspecified; I10 Essential (primary) hypertension; R45.851 Suicidal ideations; Z63.4 Disappearance and death of family member; Z79.82 Long term (current) use of aspirin; Z79.899 Other long term (current) drug therapy; Z87.442 Personal history of urinary calculi; Z96.641 Presence of right artificial hip joint; Z71.41 Alcohol abuse counseling and surveillance of alcoholic; Z56.0 Unemployment, unspecified; Z59.01 Sheltered homelessness
CPT/HCPCS: 80053; 80061; 81003; 83036; 84443; 85025